=== PATIENT | male | born 1970 | race Caucasian/White ===

== ENCOUNTER 2018-04-03 21:34 | Emergency (ER) | payer SELFPAY ==
[2018-04-03] MEDS ORDERED: Sodium Chloride 0.9% 2.5 ML Syringe FLUSH PRN (21:40)
[2018-04-03] MEDS ORDERED: Sodium Chloride 0.9% 10 ML Syringe FLUSH PRN (21:40)
[2018-04-03] MEDS ORDERED: Ondansetron 4 MG/2 ML SDV IVPUSH ONE (21:41)
[2018-04-03] MEDS ORDERED: Sodium Chloride 0.9% 1,000 ML IV ONE (21:41)
--- NOTE | 2018-04-03 21:41 | EDM.PDOC ---
ED HPI GENERAL MEDICAL PROBLEM - General Chief Complaint: General Stated Complaint: PT HAS HIGH BLOOD PRESSURE Time Seen by Provider: 04/03/18 21:36 - History of Present Illness INITIAL COMMENTS - FREE TEXT/NARRATIVE: HISTORY AND PHYSICAL: History of present illness: Patient's a 48-year-old white male history of hypertension diabetes is medically noncompliant and has not been on medication for 4 months he presents with concern of dizziness he states also had a dental abscess for which he has yet to seek dental care. Additional fever chills vomiting numbness weakness or other complaints Review of systems: As per history of present illness and below otherwise all systems reviewed and negative. Past medical history: As per history of present illness and as reviewed below otherwise noncontributory. Surgical history: As per history of present illness and as reviewed below otherwise noncontributory. Social history: No reported history of drug or alcohol abuse. Family history: As per history of present illness and as reviewed below otherwise noncontributory. Physical exam: HEENT: Atraumatic, normocephalic, pupils reactive, negative for conjunctival pallor or scleral icterus, mucous membranes dry throat clear, neck supple, nontender, trachea midline. Generally poor dentition is got some left-sided swelling with gingival edema noted Lungs: Clear to auscultation, breath sounds equal bilaterally, chest nontender. Heart: S1S2, regular, negative for clicks, rubs, or JVD. Abdomen: Soft, nondistended, nontender. Negative for masses or hepatosplenomegaly. Negative for costovertebral tenderness. Pelvis: Stable nontender. Genitourinary: Deferred. Rectal: Deferred. Extremities: Atraumatic, negative for cords or calf pain. Neurovascular unremarkable. Neuro: Awake, alert, oriented. Cranial nerves II through XII unremarkable. Cerebellum unremarkable. Motor and sensory unremarkable throughout. Exam nonfocal. Diagnostics: CBC CMP PT/INR troponin ABG chest x-ray EKG Therapeutics: Daily 1 L bolus Zofran 4 mg IV Impression: #1 dizziness #2 history diabetes #3 history of hypertension #4 medical noncompliance Definitive disposition and diagnosis as appropriate pending reevaluation and review of above. - Related Data Allergies Allergy/AdvReac Type Severity Reaction Status Date / Time SEASONAL Allergy Sneezing Uncoded 04/16/17 08:59 ED ROS GENERAL - Review of Systems Review Of Systems: ROS reveals no pertinent complaints other than HPI. ED EXAM, GENERAL - Physical Exam Exam: See Below (See dictation) Course - Vital Signs Last Recorded V/S: Last Vital Signs Temp 37.8 C 04/03/18 21:34 Pulse 112 H 04/03/18 21:34 Resp 18 04/03/18 21:34 BP 133/87 04/03/18 21:34 Pulse Ox 94 L 04/03/18 21:34 - Orders/Labs/Meds Orders: Active Orders 24 hr Category Date Time Status EKG Documentation Completion [RC] STAT Care 04/03/18 21:40 Active Chest 1V Frontal [CR] Stat Exams 04/03/18 21:40 Ordered Sodium Chloride 0.9% [Normal Saline] 1,000 ml Med 04/03/18 21:41 Active IV STAT Sodium Chloride 0.9% [Saline Flush] Med 04/03/18 21:40 Active 10 ml FLUSH ASDIRECTED PRN Sodium Chloride 0.9% [Saline Flush] Med 04/03/18 21:40 Active 2.5 ml FLUSH ASDIRECTED PRN Saline Lock Insert [OM.PC] Stat Oth 04/03/18 21:40 Ordered Medication Orders Sodium Chloride (Normal Saline) 1,000 mls @ 999 mls/hr IV STAT ONE Stop: 04/03/18 22:41 Last Admin: 04/03/18 21:43 Dose: 999 mls/hr Sodium Chloride (Saline Flush) 10 ml FLUSH ASDIRECTED PRN PRN Reason: Keep Vein Open Sodium Chloride (Saline Flush) 2.5 ml FLUSH ASDIRECTED PRN PRN Reason: Keep Vein Open Labs: Laboratory Tests 04/03/18 04/03/18 04/03/18 Range/Units 21:40 21:40 21:40 WBC 11.72 H (4.0-11.0) K/uL RBC 5.12 (4.50-5.90) M/uL Hgb 15.7 (13.0-17.0) g/dL Hct 44.5 (38.0-50.0) % MCV 86.9 (80.0-98.0) fL MCH 30.7 (27.0-32.0) pg MCHC 35.3 (31.0-37.0) g/dL RDW Std Deviation 40.6 (28.0-62.0) fl RDW Coeff of Bishop 13 (11.0-15.0) % Plt Count 287 (150-400) K/uL MPV 10.50 (7.40-12.00) fL Neut % (Auto) 92.5 H (48.0-80.0) % Lymph % (Auto) 3.9 L (16.0-40.0) % [place] % (Auto) 3.2 (0.0-15.0) % Eos % (Auto) 0.2 (0.0-7.0) % Baso % (Auto) 0.2 (0.0-1.5) % Neut # (Auto) 10.8 H (1.4-5.7) K/uL Lymph # (Auto) 0.5 L (0.6-2.4) K/uL [place] # (Auto) 0.4 (0.0-0.8) K/uL Eos # (Auto) 0.0 (0.0-0.7) K/uL Baso # (Auto) 0.0 (0.0-0.1) K/uL Nucleated RBC % 0.0 /100WBC Nucleated RBCs # 0 K/uL INR 1.01 ABG pH (7.35-7.45) ABG pCO2 (35-45) mmHG ABG pO2 (75-100) mmHG ABG HCO3 (22-26) mEq/L ABG Total CO2 ABG Base Excess (-2.0-2.0) Sodium 135 L (136-148) mmol/L Potassium 3.7 (3.5-5.1) mmol/L Chloride 101 (98-107) mmol/L Carbon Dioxide 20.6 L (21.0-32.0) mmol/L BUN 23 H (7.0-18.0) mg/dL Creatinine 1.3 (0.8-1.3) mg/dL Est Cr Clr Drug Dosing 83.06 mL/min Estimated GFR (MDRD) 58.9 ml/min Glucose 270 H (74-106) mg/dL Calcium 9.6 (8.5-10.1) mg/dL Total Bilirubin 0.4 (0.2-1.0) mg/dL AST 14 L (15-37) IU/L ALT 23 (14-63) IU/L Alkaline Phosphatase 81 (46-116) U/L Troponin I < 0.050 (0.000-0.056) ng/mL Total Protein 7.7 (6.4-8.2) g/dL Albumin 3.6 (3.4-5.0) g/dL Globulin 4.1 H (2.6-4.0) g/dL Albumin/Globulin Ratio 0.9 (0.9-1.6) 04/03/18 Range/Units 21:50 WBC (4.0-11.0) K/uL RBC (4.50-5.90) M/uL Hgb (13.0-17.0) g/dL Hct (38.0-50.0) % MCV (80.0-98.0) fL MCH (27.0-32.0) pg MCHC (31.0-37.0) g/dL RDW Std Deviation (28.0-62.0) fl RDW Coeff of Bishop (11.0-15.0) % Plt Count (150-400) K/uL MPV (7.40-12.00) fL Neut % (Auto) (48.0-80.0) % Lymph % (Auto) (16.0-40.0) % [place] % (Auto) (0.0-15.0) % Eos % (Auto) (0.0-7.0) % Baso % (Auto) (0.0-1.5) % Neut # (Auto) (1.4-5.7) K/uL Lymph # (Auto) (0.6-2.4) K/uL [place] # (Auto) (0.0-0.8) K/uL Eos # (Auto) (0.0-0.7) K/uL Baso # (Auto) (0.0-0.1) K/uL Nucleated RBC % /100WBC Nucleated RBCs # K/uL INR ABG pH 7.406 (7.35-7.45) ABG pCO2 32 L (35-45) mmHG ABG pO2 61 L (75-100) mmHG ABG HCO3 20 L (22-26) mEq/L ABG Total CO2 17.7 ABG Base Excess -3.5 L (-2.0-2.0) Sodium (136-148) mmol/L Potassium (3.5-5.1) mmol/L Chloride (98-107) mmol/L Carbon Dioxide (21.0-32.0) mmol/L BUN (7.0-18.0) mg/dL Creatinine (0.8-1.3) mg/dL Est Cr Clr Drug Dosing mL/min Estimated GFR (MDRD) ml/min Glucose (74-106) mg/dL Calcium (8.5-10.1) mg/dL Total Bilirubin (0.2-1.0) mg/dL AST (15-37) IU/L ALT (14-63) IU/L Alkaline Phosphatase (46-116) U/L Troponin I (0.000-0.056) ng/mL Total Protein (6.4-8.2) g/dL Albumin (3.4-5.0) g/dL Globulin (2.6-4.0) g/dL Albumin/Globulin Ratio (0.9-1.6) Meds: Medications Generic Name Dose Route Start Last Admin Trade Name Freq PRN Reason Stop Dose Admin Sodium Chloride 1,000 mls @ 999 mls/hr 04/03/18 21:41 04/03/18 21:43 Normal Saline IV 04/03/18 22:41 999 mls/hr STAT ONE Administration Sodium Chloride 10 ml 04/03/18 21:40 Saline Flush FLUSH ASDIRECTED PRN Keep Vein Open Sodium Chloride 2.5 ml 04/03/18 21:40 Saline Flush FLUSH ASDIRECTED PRN Keep Vein Open Discontinued Medications Generic Name Dose Route Start Last Admin Trade Name Freq PRN Reason Stop Dose Admin Ondansetron HCl 4 mg 04/03/18 21:41 04/03/18 21:46 Zofran IVPUSH 04/03/18 21:42 4 mg ONETIME ONE Administration Departure - Departure Time of Disposition: 22:24 Disposition: Home, Self-Care 01 Condition: Good Clinical Impression: Dizziness, Dentalgia, History of diabetes mellitus, History of hypertension, Medical non-compliance - Discharge Information Forms: ED Department Discharge Additional Instructions: The following information is given to patients seen in the emergency department who are being discharged to home. This information is to outline your options for follow-up care. We provide all patients seen in our emergency department with a follow-up referral. The need for follow-up, as well as the timing and circumstances, are variable depending upon the specifics of your emergency department visit. If you don't have a primary care physician on staff, we will provide you with a referral. We always advise you to contact your personal physician following an emergency department visit to inform them of the circumstance of the visit and for follow-up with them and/or the need for any referrals to a consulting specialist. The emergency department will also refer you to a specialist when appropriate. This referral assures that you have the opportunity for followup care with a specialist. All of these measure are taken in an effort to provide you with optimal care, which includes your followup. Under all circumstances we always encourage you to contact your private physician who remains a resource for coordinating your care. When calling for followup care, please make the office aware that this follow-up is from your recent emergency room visit. If for any reason you are refused follow-up, please contact the [facility] emergency department at and asked to speak to the emergency department charge nurse. [facility] [address] [place] [id number] Penicillin as directed Motrin/Tylenol as directed follow primary care above for coordination of medications and care regarding diabetes and hypertension return as needed as discussed - My Orders Last 24 Hours: My Active Orders 04/03/18 21:40 EKG Documentation Completion [RC] STAT Chest 1V Frontal [CR] Stat Sodium Chloride 0.9% [Saline Flush] 10 ml FLUSH ASDIRECTED PRN Sodium Chloride 0.9% [Saline Flush] 2.5 ml FLUSH ASDIRECTED PRN Saline Lock Insert [OM.PC] Stat 04/03/18 21:41 Sodium Chloride 0.9% [Normal Saline] 1,000 ml IV STAT - Assessment/Plan Last 24 Hours: My Active Orders 04/03/18 21:40 EKG Documentation Completion [RC] STAT Chest 1V Frontal [CR] Stat Sodium Chloride 0.9% [Saline Flush] 10 ml FLUSH ASDIRECTED PRN Sodium Chloride 0.9% [Saline Flush] 2.5 ml FLUSH ASDIRECTED PRN Saline Lock Insert [OM.PC] Stat 04/03/18 21:41 Sodium Chloride 0.9% [Normal Saline] 1,000 ml IV STAT
[2018-04-03 22:15] LABS: CHLORIDE,CL 101 mmol/L (98-107); SODIUM,NA 135 mmol/L (136-148)
--- NOTE | 2018-04-03 22:53 | CR ---
Indication: Dizziness Technique: Chest 1 view Comparison: None Findings/Impression: Cardiomediastinal silhouette within normal limits. Elevation of right hemidiaphragm. Linear atelectasis at the right lung base. Remainder of the lungs and pleural spaces are clear. No acute osseous abnormality. Dictated by Becky Streeter MD @ Apr 03 2018 10:50PM Signed by Dr. Becky Streeter @ Apr 03 2018 10:51PM
== END 2018-04-03 22:50 | disposition home or self-care (01) ==
LOC: MW.ED 21:34
DX: R42 Dizziness and giddiness (principal); K08.89 Other specified disorders of teeth and supporting structures; Z91.19 Patient's noncompliance with other medical treatment and regimen; I10 Essential (primary) hypertension; E11.9 Type 2 diabetes mellitus without complications; Z91.09 Other allergy status, other than to drugs and biological substances
CPT/HCPCS: 36415; 36600; 71045; 80053; 82803; 84484; 85025; 85610; 87804; 93005; 96361; 96374; 99284; J2405; J7040

== ENCOUNTER 2018-05-25 10:49 | Observation (INO) | payer MEDICAID ==
--- NOTE | 2018-05-25 11:00 | EDM.PDOC ---
ED HPI GENERAL MEDICAL PROBLEM - General Chief Complaint: Lower Extremity Injury/Pain Stated Complaint: FOOT PAIN Time Seen by Provider: 05/25/18 10:52 Source of Information: Reports: Patient History Limitations: Reports: No Limitations - History of Present Illness INITIAL COMMENTS - FREE TEXT/NARRATIVE: HISTORY AND PHYSICAL: History of present illness: Patient is a 48-year-old male who presents to the emergency room from Dr Saldana classification clerk's office for further evaluation of a diabetic foot ulcer. Patient does have a history of hypertension and type 2 diabetes; does take insulin to manage his blood sugars. He states that over the past 2 days his blood sugars have been running 500-300. States he noticed this painful foot ulcer below the great toe on his right foot yesterday. He has had some drainage from the site. Patient has exquisite tenderness with palpation and weightbearing. Patient denies any fever, chills, headache, change in vision, syncope or near syncope. Denies any chest pain, back pain, shortness of breath or cough. Denies any abdominal pain, nausea, vomiting, diarrhea, constipation or dysuria. Has not noted any blood in urine or stool. Patient has been eating and drinking appropriately. Review of systems: As per history of present illness and below otherwise all systems reviewed and negative. Past medical history: As per history of present illness and as reviewed below otherwise noncontributory. Surgical history: As per history of present illness and as reviewed below otherwise noncontributory. Social history: See social history for further information Family history: As per history of present illness and as reviewed below otherwise noncontributory. Physical exam: General: Well-developed and well-nourished 48-year-old male. Alert and oriented. Nontoxic appearing and in no acute distress. HEENT: Atraumatic, normocephalic, pupils equal and reactive bilaterally, negative for conjunctival pallor or scleral icterus, mucous membranes moist, TMs normal bilaterally, throat clear, neck supple, nontender, trachea midline. No drooling or trismus noted. No meningeal signs. No hot potato voice noted. Lungs: Clear to auscultation, breath sounds equal bilaterally, chest nontender. Heart: S1S2, regular rate and rhythm without overt murmur Abdomen: Soft, nondistended, nontender. Negative for masses or hepatosplenomegaly. Negative for costovertebral tenderness. Pelvis: Stable nontender. Genitourinary: Deferred. Rectal: Deferred. Skin: Patient does have erythema to the dorsal aspect at the base of the toes. Skin is very dry and calloused along the plantar surface of the foot. There is a quarter size ulcer with a purulent center at the base of the fourth and fifth digit. Intact, warm, dry. No lesions or rashes noted. Extremities: Atraumatic, moves all extremities per self with difficulty or deficits, negative for cords or calf pain. Neurovascular unremarkable. Neuro: Awake, alert, oriented. Cranial nerves II through XII unremarkable. Cerebellum unremarkable. Motor and sensory unremarkable throughout. Exam nonfocal. Notes: Dr Bang was directly involved in this case. Dr Das was consulted on this case and agreeable to keeping this patient for observation. He would like the patient started on IV vancomycin. Patient is aware and agreeable to plan of care. Diagnostics: CBC, CMP, Blood culture x 2, Foot Xray Therapeutics: IV vancomycin Impression: Cellulitis, right foot Plan: Observation admission to med/surg Definitive disposition and diagnosis as appropriate pending reevaluation and review of above. Right Feet Pain Score (Numeric/FACES): 5 - Related Data Allergies Allergy/AdvReac Type Severity Reaction Status Date / Time SEASONAL Allergy Sneezing Uncoded 05/25/18 10:56 Home Meds: Home Meds Insulin Aspart [NovoLOG] 0 unit WITHMEALSANDBED 05/25/18 [History] Insulin Degludec [Tresiba] 100 unit SQ ASDIRECTED 05/25/18 [History] Past Medical History Cardiovascular History: Reports: Hypertension Endocrine/Metabolic History: Reports: Diabetes, Type II Social & Family History - Family History Family Medical History: Noncontributory Review of Systems - Review of Systems Review Of Systems: ROS reveals no pertinent complaints other than HPI. ED EXAM, GENERAL - Physical Exam Exam: See Below (See dictation) Course - Vital Signs Last Recorded V/S: Last Vital Signs Temp 97.9 F 05/25/18 10:57 Pulse 90 05/25/18 10:57 Resp 16 05/25/18 10:57 BP 163/100 H 05/25/18 10:57 Pulse Ox 94 L 05/25/18 10:57 - Orders/Labs/Meds Orders: Active Orders 24 hr Category Date Time Status Admission Status [Patient Status] [ADT] Stat ADT 05/25/18 12:02 Ordered Foot Comp Min 3V Rt [CR] Stat Exams 05/25/18 11:01 Taken COMPREHENSIVE METABOLIC PN,CMP [CHEM] Stat Lab 05/25/18 11:24 Received CULTURE BLOOD [BC] Stat Lab 05/25/18 11:24 Received CULTURE BLOOD [BC] Stat Lab 05/25/18 11:35 Received Sodium Chloride 0.9% [Saline Flush] Med 05/25/18 11:01 Active 10 ml FLUSH ASDIRECTED PRN Sodium Chloride 0.9% [Saline Flush] Med 05/25/18 11:01 Active 2.5 ml FLUSH ASDIRECTED PRN Vancomycin [Vancocin] 1 gm Med 05/25/18 12:01 Ordered Sodium Chloride 0.9% [Normal Saline] 250 ml IV ONETIME Blood Culture x2 Reflex Set [OM.PC] Stat Oth 05/25/18 11:01 Ordered Saline Lock Insert [OM.PC] Stat Oth 05/25/18 11:01 Ordered Medication Orders Vancomycin HCl 1 gm/ Sodium (Chloride) 250 mls @ 250 mls/hr IV ONETIME ONE Stop: 05/25/18 13:00 Sodium Chloride (Saline Flush) 10 ml FLUSH ASDIRECTED PRN PRN Reason: Keep Vein Open Last Admin: 05/25/18 11:29 Dose: 10 ml Sodium Chloride (Saline Flush) 2.5 ml FLUSH ASDIRECTED PRN PRN Reason: Keep Vein Open Last Admin: 05/25/18 11:29 Dose: 2.5 ml Labs: Laboratory Tests 05/25/18 05/25/18 Range/Units 11:07 11:24 WBC 10.60 (4.0-11.0) K/uL RBC 5.10 (4.50-5.90) M/uL Hgb 15.4 (13.0-17.0) g/dL Hct 43.5 (38.0-50.0) % MCV 85.3 (80.0-98.0) fL MCH 30.2 (27.0-32.0) pg MCHC 35.4 (31.0-37.0) g/dL RDW Std Deviation 36.6 (28.0-62.0) fl RDW Coeff of Bishop 12 (11.0-15.0) % Plt Count 331 (150-400) K/uL MPV 10.20 (7.40-12.00) fL Neut % (Auto) 76.0 (48.0-80.0) % Lymph % (Auto) 17.1 (16.0-40.0) % [place] % (Auto) 5.3 (0.0-15.0) % Eos % (Auto) 1.4 (0.0-7.0) % Baso % (Auto) 0.2 (0.0-1.5) % Neut # (Auto) 8.1 H (1.4-5.7) K/uL Lymph # (Auto) 1.8 (0.6-2.4) K/uL [place] # (Auto) 0.6 (0.0-0.8) K/uL Eos # (Auto) 0.2 (0.0-0.7) K/uL Baso # (Auto) 0.0 (0.0-0.1) K/uL POC Glucose 135 H (60-110) mg/dL Meds: Medications Generic Name Dose Route Start Last Admin Trade Name Freq PRN Reason Stop Dose Admin Vancomycin HCl 1 gm/ Sodium 250 mls @ 250 mls/hr 05/25/18 12:01 Chloride IV 05/25/18 13:00 ONETIME ONE Sodium Chloride 10 ml 05/25/18 11:01 05/25/18 11:29 Saline Flush FLUSH 10 ml ASDIRECTED PRN Administration Keep Vein Open Sodium Chloride 2.5 ml 05/25/18 11:01 05/25/18 11:29 Saline Flush FLUSH 2.5 ml ASDIRECTED PRN Administration Keep Vein Open Departure - Departure Time of Disposition: 12:06 Disposition: Refer to Observation Clinical Impression: Cellulitis Qualifiers: Site of cellulitis: extremity Site of cellulitis of extremity: lower extremity Laterality: right Qualified Code(s): L03.115 - Cellulitis of right lower limb - Discharge Information Referrals: Gracy Adhikari [employer] [Primary Care Provider] - Forms: ED Department Discharge - My Orders Last 24 Hours: My Active Orders 05/25/18 11:01 Foot Comp Min 3V Rt [CR] Stat Sodium Chloride 0.9% [Saline Flush] 10 ml FLUSH ASDIRECTED PRN Sodium Chloride 0.9% [Saline Flush] 2.5 ml FLUSH ASDIRECTED PRN Blood Culture x2 Reflex Set [OM.PC] Stat Saline Lock Insert [OM.PC] Stat 05/25/18 11:24 COMPREHENSIVE METABOLIC PN,CMP [CHEM] Stat CULTURE BLOOD [BC] Stat 05/25/18 11:35 CULTURE BLOOD [BC] Stat 05/25/18 12:01 Vancomycin [Vancocin] 1 gm Sodium Chloride 0.9% [Normal Saline] 250 ml IV ONETIME 05/25/18 12:02 Admission Status [Patient Status] [ADT] Stat - Assessment/Plan Last 24 Hours: My Active Orders 05/25/18 11:01 Foot Comp Min 3V Rt [CR] Stat Sodium Chloride 0.9% [Saline Flush] 10 ml FLUSH ASDIRECTED PRN Sodium Chloride 0.9% [Saline Flush] 2.5 ml FLUSH ASDIRECTED PRN Blood Culture x2 Reflex Set [OM.PC] Stat Saline Lock Insert [OM.PC] Stat 05/25/18 11:24 COMPREHENSIVE METABOLIC PN,CMP [CHEM] Stat CULTURE BLOOD [BC] Stat 05/25/18 11:35 CULTURE BLOOD [BC] Stat 05/25/18 12:01 Vancomycin [Vancocin] 1 gm Sodium Chloride 0.9% [Normal Saline] 250 ml IV ONETIME 05/25/18 12:02 Admission Status [Patient Status] [ADT] Stat
[2018-05-25] MEDS ORDERED: Sodium Chloride 0.9% 2.5 ML Syringe FLUSH PRN (11:01)
[2018-05-25] MEDS ORDERED: Sodium Chloride 0.9% 10 ML Syringe FLUSH PRN (11:01)
[2018-05-25 12:15] LABS: CHLORIDE,CL 102 mmol/L (98-107); SODIUM,NA 138 mmol/L (136-148)
--- NOTE | 2018-05-25 13:09 | PCM.HP ---
<Sinai Vital M - Last Filed: 05/25/18 16:41> H&P History of Present Illness - General Date of Service: 05/25/18 Admit Problem/Dx: Admission Diagnosis/Problem Admission Diagnosis/Problem Cellulitis Source of Information: Patient History Limitations: Reports: No Limitations - History of Present Illness Initial Comments - Free Text/Narative: This 48 year old male with pmh of DM type 2, HTN, obesity presented to the ED from podiatry clinic with concerns of cellulitis and diabetic ulcer to R foot. He reports he has callouses to his feet that have been there for a long time. About 1 week ago this callous to bottom of foot started becoming sore and started draining. He denies fevers, chills, chest pain or shortness of breath. He reports increased pain to R foot with some redness and warmth. No calf tenderness. No tingling or numbness. He reports he has not been taking his medications, such as insulin or HTN meds as of recently. He did meet with DM educator a couple days ago to get started on insulin again. He denies history of ulcers. No [place] or known CAD. In the ED no leukocytosis noted. Labwork otherwise WNL. BC obtained. Xray of foot pending. He was treated with Vancomycin and admitted secondary to DM foot ulcer with surround cellulitis PCP, newly established with Gracy Howard. Right Feet Pain Score (Numeric/FACES): 5 - Related Data Allergies/Adverse Reactions: Allergies Allergy/AdvReac Type Severity Reaction Status Date / Time SEASONAL Allergy Sneezing Uncoded 05/25/18 10:56 Home Medications: Home Meds FLUoxetine HCl [Fluoxetine HCl] 40 mg PO DAILY 05/25/18 [History] Insulin Aspart [NovoLOG] 5 unit SUBCUT WITHBREAKFAST 05/25/18 [History] Insulin Aspart [NovoLOG] 8 unit SUBCUT WITHLUNCH 05/25/18 [History] Insulin Aspart [NovoLOG] 12 unit SUBCUT WITHDINNER 05/25/18 [History] Insulin Degludec [Tresiba] 20 unit SQ BEDTIME 05/25/18 [History] Lisinopril 20 mg PO DAILY 05/25/18 [History] Simvastatin 20 mg PO BEDTIME 05/25/18 [History] traZODone HCl [Trazodone HCl] 50 mg PO BEDTIME PRN 05/25/18 [History] Past Medical History HEENT History: Reports: None Cardiovascular History: Reports: Hypertension. Denies: Afib, Blood Clots/VTE/ DVT, CAD Respiratory History: Reports: None. Denies: Asthma, COPD Gastrointestinal History: Reports: None. Denies: GERD Genitourinary History: Reports: None. Denies: Chronic Renal Insuffiency Musculoskeletal History: Reports: None Neurological History: Reports: None Psychiatric History: Reports: None Endocrine/Metabolic History: Reports: Diabetes, Type II, Obesity/BMI 30+ Hematologic History: Reports: None Immunologic History: Reports: None Oncologic (Cancer) History: Reports: None Dermatologic History: Reports: None - Infectious Disease History Infectious Disease History: Reports: None - Past Surgical History Head Surgeries/Procedures: Reports: None Cardiovascular Surgical History: Reports: None GI Surgical History: Reports: None Social & Family History - Family History Family Medical History: Noncontributory - Tobacco Use Smoking Status *Q: Never Smoker - Caffeine Use Caffeine Use: Reports: Coffee - Alcohol Use Alcohol Use History: No - Recreational Drug Use Recreational Drug Use: No - Living Situation & Occupation Living situation: Reports: Single 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 Denies: Fever, Chills, Malaise, Weakness HEENT: Reports: No Symptoms. Denies: Headaches, Sinus Congestion, Sore Throat, Vertigo Pulmonary: Reports: No Symptoms. Denies: Shortness of Breath Cardiovascular: Reports: No Symptoms. Denies: Chest Pain Gastrointestinal: Reports: No Symptoms. Denies: Abdominal Pain, Black Stool, Bloody Stool, Nausea, Vomiting Genitourinary: Reports: No Symptoms. Denies: Dysuria, Frequency, Burning Musculoskeletal: Reports: Foot Pain (Lateral edge of bottom of foot where ulcer is located. ) Skin: Reports: Erythema, Wound (R foot) Neurological: Reports: No Symptoms Hematologic/Lymphatic: Reports: No Symptoms Immunologic: Reports: No Symptoms Exam - Exam Exam: See Below - Vital Signs Vital Signs: Last Vital Signs Temp 97.9 F 05/25/18 10:57 Pulse 82 05/25/18 12:55 Resp 18 05/25/18 12:55 BP 145/93 H 05/25/18 12:55 Pulse Ox 98 05/25/18 12:55 Weight: 130.635 kg - Exam General: Alert, Oriented, Cooperative HEENT: Conjunctiva Clear, Mucosa Moist & Loring, Posterior Pharynx Clear Lungs: Clear to Auscultation, Normal Respiratory Effort Cardiovascular: Regular Rate, Regular Rhythm, Normal S1, Normal S2 GI/Abdominal Exam: Normal Bowel Sounds, Soft, Non-Tender, Other (obese abdomen) Back Exam: Normal Inspection, Full Range of Motion Extremities: Normal Inspection, Normal Range of Motion, Non-Tender, No Pedal Edema Skin: Wound (dorsal R foot, lateral edge just below 4th metatarsal, draining purulent drainage, callous surrounding this unable to detect fluctuance due to hardened callous around this. Extreme tenderness with any palpation. Warmth and redness noted to foot), Other (callouses to bilateral dorsum of feet.) Neuro Extensive - Mental Status: Alert, Oriented x3 Neuro Extensive - Motor, Sensory, Reflexes: CN II-XII Intact Psychiatric: Alert, Normal Affect, Normal Mood - Patient Data Lab Results Last 24 hrs: Laboratory Results - last 24 hr 05/25/18 05/25/18 05/25/18 Range/Units 11:07 11:24 11:24 WBC 10.60 (4.0-11.0) K/uL RBC 5.10 (4.50-5.90) M/uL Hgb 15.4 (13.0-17.0) g/dL Hct 43.5 (38.0-50.0) % MCV 85.3 (80.0-98.0) fL MCH 30.2 (27.0-32.0) pg MCHC 35.4 (31.0-37.0) g/dL RDW Std Deviation 36.6 (28.0-62.0) fl RDW Coeff of Bishop 12 (11.0-15.0) % Plt Count 331 (150-400) K/uL MPV 10.20 (7.40-12.00) fL Neut % (Auto) 76.0 (48.0-80.0) % Lymph % (Auto) 17.1 (16.0-40.0) % [place] % (Auto) 5.3 (0.0-15.0) % Eos % (Auto) 1.4 (0.0-7.0) % Baso % (Auto) 0.2 (0.0-1.5) % Neut # (Auto) 8.1 H (1.4-5.7) K/uL Lymph # (Auto) 1.8 (0.6-2.4) K/uL [place] # (Auto) 0.6 (0.0-0.8) K/uL Eos # (Auto) 0.2 (0.0-0.7) K/uL Baso # (Auto) 0.0 (0.0-0.1) K/uL Sodium 138 (136-148) mmol/L Potassium 3.9 (3.5-5.1) mmol/L Chloride 102 (98-107) mmol/L Carbon Dioxide 27.4 (21.0-32.0) mmol/L BUN 21 H (7.0-18.0) mg/dL Creatinine 1.2 (0.8-1.3) mg/dL Est Cr Clr Drug Dosing 89.98 mL/min Estimated GFR (MDRD) > 60.0 ml/min Glucose 138 H (74-106) mg/dL POC Glucose 135 H (60-110) mg/dL Calcium 9.5 (8.5-10.1) mg/dL Total Bilirubin 0.3 (0.2-1.0) mg/dL AST 13 L (15-37) IU/L ALT 28 (14-63) IU/L Alkaline Phosphatase 89 (46-116) U/L Total Protein 7.9 (6.4-8.2) g/dL Albumin 3.1 L (3.4-5.0) g/dL Globulin 4.8 H (2.6-4.0) g/dL Albumin/Globulin Ratio 0.7 L (0.9-1.6) Result Diagrams: 05/25/18 11:24 05/25/18 11:24 - Problem List (1) Cellulitis SNOMED Code(s): 995948576 ICD Code: L03.90 - CELLULITIS, UNSPECIFIED Status: Acute Current Visit: Yes Qualifiers: Site of cellulitis: extremity Site of cellulitis of extremity: lower extremity Laterality: right Qualified Code(s): L03.115 - Cellulitis of right lower limb (2) DM foot ulcer SNOMED Code(s): 302094632 ICD Code: E11.621 - TYPE 2 DIABETES MELLITUS WITH FOOT ULCER; L97.509 - NON- PRESSURE CHRONIC ULCER OTH PRT UNSP FOOT W UNSP SEVERITY Status: Acute Current Visit: Yes Qualifiers: Diabetic foot ulcer location: midfoot Diabetes mellitus type: type 1 Laterality: right (3) DM type 2 (diabetes mellitus, type 2) SNOMED Code(s): 24933696 ICD Code: E11.9 - TYPE 2 DIABETES MELLITUS WITHOUT COMPLICATIONS Status: Chronic Current Visit: Yes Qualifiers: Diabetes mellitus detention insulin use: with detention use Diabetes mellitus complication status: with skin complications Diabetes mellitus complication detail: with foot ulcer Qualified Code(s): E11.621 - Type 2 diabetes mellitus with foot ulcer; L97.509 - Non-pressure chronic ulcer of other part of unspecified foot with unspecified severity; Z79.4 - detention ( current) use of insulin (4) HTN (hypertension) SNOMED Code(s): 70656088 ICD Code: I10 - ESSENTIAL (PRIMARY) HYPERTENSION Status: Chronic Current Visit: Yes Qualifiers: Hypertension type: essential hypertension Qualified Code(s): I10 - Essential (primary) hypertension (5) Medical non-compliance SNOMED Code(s): 284911068 ICD Code: Z91.19 - PATIENT'S NONCOMPLIANCE W OTH MEDICAL TREATMENT AND REGIMEN Status: Acute Current Visit: No Problem List Initiated/Reviewed/Updated: Yes Orders Last 24hrs: Active Orders 24 hr Category Date Time Status Admission Status [Patient Status] [ADT] Stat ADT 05/25/18 12:02 Active Foot Comp Min 3V Rt [CR] Stat Exams 05/25/18 11:01 Taken CULTURE BLOOD [BC] Stat Lab 05/25/18 11:24 Received CULTURE BLOOD [BC] Stat Lab 05/25/18 11:35 Received Sodium Chloride 0.9% [Saline Flush] Med 05/25/18 11:01 Active 10 ml FLUSH ASDIRECTED PRN Sodium Chloride 0.9% [Saline Flush] Med 05/25/18 11:01 Active 2.5 ml FLUSH ASDIRECTED PRN Blood Culture x2 Reflex Set [OM.PC] Stat Oth 05/25/18 11:01 Ordered Saline Lock Insert [OM.PC] Stat Oth 05/25/18 11:01 Ordered Medication Orders Sodium Chloride (Saline Flush) 10 ml FLUSH ASDIRECTED PRN PRN Reason: Keep Vein Open Last Admin: 05/25/18 11:29 Dose: 10 ml Sodium Chloride (Saline Flush) 2.5 ml FLUSH ASDIRECTED PRN PRN Reason: Keep Vein Open Last Admin: 05/25/18 11:29 Dose: 2.5 ml Assessment/Plan Comment:: This 48 year old male admitted with DM foot ulcer with cellulitis 1. DM foot ulcer, R foot with cellulitis: Continue Vancomycin. Will order MRI to rule out abscess and osteomyelitis. I did explain to him no podiatry is available for inpatient management, if he needs further management such as debridement or surgical intervention he will need to be transferred. Wound culture of drainage. BC pending. 2. DM Type 2: Non complaint with medications. Has not been on insulin for awhile , A1c 10.4. Will start Lantus 20 units with bedtime. Novolog SSI with 5 units at breakfast, 8 at lunch and 12 units at supper. Discussed this with DM educator. 3. HTN: Has not been taking lisinopril. Will get restarted because BP is elevated on arrival. VTE prophylaxis: Lovenox Dispo: 1-2 days pending improvement. <Tevin Das - Last Filed: 05/25/18 16:59> H&P History of Present Illness - General Admit Problem/Dx: Admission Diagnosis/Problem Admission Diagnosis/Problem Cellulitis I have seen and examined the patient independently of Sinai Vital CNP. I have discussed the case with her. I have reviewed and agreed with the plan of treatment as outlined for this patient by her. Please see orders. MRI has been obtained secondary to concern for osteomyelitis. Exam - Vital Signs Vital Signs: Last Vital Signs Temp 37.2 C 05/25/18 14:00 Pulse 83 05/25/18 14:00 Resp 18 05/25/18 14:00 BP 150/95 H 05/25/18 14:00 Pulse Ox 100 05/25/18 14:00 - Patient Data Lab Results Last 24 hrs: Laboratory Results - last 24 hr 05/25/18 05/25/18 05/25/18 Range/Units 11:07 11:24 11:24 WBC 10.60 (4.0-11.0) K/uL RBC 5.10 (4.50-5.90) M/uL Hgb 15.4 (13.0-17.0) g/dL Hct 43.5 (38.0-50.0) % MCV 85.3 (80.0-98.0) fL MCH 30.2 (27.0-32.0) pg MCHC 35.4 (31.0-37.0) g/dL RDW Std Deviation 36.6 (28.0-62.0) fl RDW Coeff of Bishop 12 (11.0-15.0) % Plt Count 331 (150-400) K/uL MPV 10.20 (7.40-12.00) fL Neut % (Auto) 76.0 (48.0-80.0) % Lymph % (Auto) 17.1 (16.0-40.0) % [place] % (Auto) 5.3 (0.0-15.0) % Eos % (Auto) 1.4 (0.0-7.0) % Baso % (Auto) 0.2 (0.0-1.5) % Neut # (Auto) 8.1 H (1.4-5.7) K/uL Lymph # (Auto) 1.8 (0.6-2.4) K/uL [place] # (Auto) 0.6 (0.0-0.8) K/uL Eos # (Auto) 0.2 (0.0-0.7) K/uL Baso # (Auto) 0.0 (0.0-0.1) K/uL Sodium 138 (136-148) mmol/L Potassium 3.9 (3.5-5.1) mmol/L Chloride 102 (98-107) mmol/L Carbon Dioxide 27.4 (21.0-32.0) mmol/L BUN 21 H (7.0-18.0) mg/dL Creatinine 1.2 (0.8-1.3) mg/dL Est Cr Clr Drug Dosing 89.98 mL/min Estimated GFR (MDRD) > 60.0 ml/min Glucose 138 H (74-106) mg/dL POC Glucose 135 H (60-110) mg/dL Calcium 9.5 (8.5-10.1) mg/dL Total Bilirubin 0.3 (0.2-1.0) mg/dL AST 13 L (15-37) IU/L ALT 28 (14-63) IU/L Alkaline Phosphatase 89 (46-116) U/L Total Protein 7.9 (6.4-8.2) g/dL Albumin 3.1 L (3.4-5.0) g/dL Globulin 4.8 H (2.6-4.0) g/dL Albumin/Globulin Ratio 0.7 L (0.9-1.6) Result Diagrams: 05/25/18 11:24 05/25/18 11:24 Orders Last 24hrs: Active Orders 24 hr Category Date Time Status Admission Status [Patient Status] [ADT] Stat ADT 05/25/18 12:02 Active Blood Glucose Check, Bedside [RC] TIDMEALS Care 05/25/18 13:30 Active Intake and Output [RC] QSHIFT Care 05/25/18 13:31 Active May Shower [RC] ASDIRECTED Care 05/25/18 13:30 Active Oxygen Therapy [RC] PRN Care 05/25/18 13:31 Active Up ad Nadja [RC] ASDIRECTED Care 05/25/18 13:30 Active VTE/DVT Education [RC] PER UNIT ROUTINE Care 05/25/18 13:31 Active Vital Signs [RC] Q4H Care 05/25/18 13:31 Active Consult to Diabetic Nurse Specialist [CONS] Routine Cons 05/25/18 13:30 Active [employer] Diet [DIET] Diet 05/25/18 Lunch Active Foot w Cont Rt [MR] Routine Exams 05/25/18 13:10 Ordered BASIC METABOLIC PANEL,BMP [CHEM] AM Lab 05/26/18 05:11 Ordered BASIC METABOLIC PANEL,BMP [CHEM] AM Lab 05/27/18 05:11 Ordered BASIC METABOLIC PANEL,BMP [CHEM] AM Lab 05/28/18 05:11 Ordered CBC WITH AUTO DIFF [HEME] AM Lab 05/26/18 05:11 Ordered CBC WITH AUTO DIFF [HEME] AM Lab 05/27/18 05:11 Ordered CBC WITH AUTO DIFF [HEME] AM Lab 05/28/18 05:11 Ordered CULTURE BLOOD [BC] Stat Lab 05/25/18 11:24 Received CULTURE BLOOD [BC] Stat Lab 05/25/18 11:35 Received CULTURE WOUND [RM] Routine Lab 05/25/18 16:24 Ordered VANCOMYCIN TROUGH [CHEM] Timed Lab 05/26/18 13:30 Ordered Enoxaparin [Lovenox] Med 05/25/18 13:30 Active 40 mg SUBCUT Q24H FLUoxetine [PROzac] Med 05/26/18 09:00 Active 40 mg PO DAILY Insulin Aspart [NovoLOG] Med 05/25/18 17:00 Active 12 unit SUBCUT DAILY@1700 Insulin Aspart [NovoLOG] Med 05/26/18 07:00 Active 5 unit SUBCUT DAILY@0700 Insulin Aspart [NovoLOG] Med 05/26/18 11:30 Active 8 unit SUBCUT DAILY@1130 Insulin Aspart [NovoLOG] Med 05/25/18 17:00 Active See Protocol SUBCUT TIDAC Insulin Glarg,Human.Rec.Analog [LantUS Solostar] Med 05/25/18 21:00 Active 20 units SUBCUT BEDTIME Lisinopril [Prinivil] Med 05/26/18 09:00 Active 20 mg PO DAILY Morphine Med 05/25/18 13:30 Active 2 mg IVPUSH Q2H PRN Ondansetron [Zofran] Med 05/25/18 13:30 Active 4 mg IVPUSH Q4H PRN Pharmacy to Dose - Vancomycin Med 05/25/18 13:45 Active 1 dose .XX ASDIRECTED Simvastatin [Zocor] Med 05/25/18 21:00 Active 20 mg PO BEDTIME Sodium Chloride 0.9% [Saline Flush] Med 05/25/18 11:01 Active 10 ml FLUSH ASDIRECTED PRN Sodium Chloride 0.9% [Saline Flush] Med 05/25/18 11:01 Active 2.5 ml FLUSH ASDIRECTED PRN Vancomycin 1 gm Med 05/25/18 14:30 Active Vancomycin 500 mg Sodium Chloride 0.9% [Normal Saline] 500 ml IV Q8H oxyCODONE Med 05/25/18 13:30 Active 5 - 10 mg PO Q4H PRN traZODone Med 05/25/18 16:00 Active 50 mg PO BEDTIME PRN Blood Culture x2 Reflex Set [OM.PC] Stat Oth 05/25/18 11:01 Ordered Obtain Home Medication List [OM.PC] Routine Oth 05/25/18 13:40 Ordered Saline Lock Insert [OM.PC] Stat Oth 05/25/18 11:01 Ordered Resuscitation Status Routine Resus Stat 05/25/18 13:30 Ordered Medication Orders Enoxaparin Sodium (Lovenox) 40 mg SUBCUT Q24H [facility] Last Admin: 05/25/18 15:09 Dose: 40 mg Fluoxetine HCl (Prozac) 40 mg PO DAILY [facility] Vancomycin HCl 1 gm/Vancomycin HCl 500 mg/ Sodium Chloride 500 mls @ 250 mls/ hr IV Q8H [facility] Last Admin: 05/25/18 15:04 Dose: 250 mls/hr Insulin Aspart (Novolog) 0 unit SUBCUT TIDAC [facility]; Protocol Insulin Aspart (Novolog) 5 unit SUBCUT DAILY@0700 [facility] Insulin Aspart (Novolog) 8 unit SUBCUT DAILY@1130 [facility] Insulin Aspart (Novolog) 12 unit SUBCUT DAILY@1700 [facility] Insulin Glargine (Lantus Solostar) 20 units SUBCUT BEDTIME [facility] Lisinopril (Prinivil) 20 mg PO DAILY [facility] Morphine Sulfate (Morphine) 2 mg IVPUSH Q2H PRN PRN Reason: Pain (severe 7-10) Stop: 05/26/18 13:34 Ondansetron HCl (Zofran) 4 mg IVPUSH Q4H PRN PRN Reason: Nausea Oxycodone HCl (Oxycodone) 5 - 10 mg PO Q4H PRN PRN Reason: Pain (moderate 4-6) Simvastatin (Zocor) 20 mg PO BEDTIME [facility] Sodium Chloride (Saline Flush) 10 ml FLUSH ASDIRECTED PRN PRN Reason: Keep Vein Open Last Admin: 05/25/18 11:29 Dose: 10 ml Sodium Chloride (Saline Flush) 2.5 ml FLUSH ASDIRECTED PRN PRN Reason: Keep Vein Open Last Admin: 05/25/18 11:29 Dose: 2.5 ml Trazodone HCl (Trazodone) 50 mg PO BEDTIME PRN PRN Reason: Sleep Vancomycin HCl (Pharmacy To Dose - Vancomycin) 1 dose .XX ASDIRECTED [facility]
[2018-05-25] MEDS ORDERED: oxyCODONE 5 MG Tab PO PRN (13:30)
[2018-05-25] MEDS ORDERED: Ondansetron 4 MG/2 ML SDV IVPUSH PRN (13:30)
[2018-05-25] MEDS ORDERED: Morphine 2 MG/ML Syringe IVPUSH PRN (13:30)
[2018-05-25] MEDS: Vancomycin 1 GM, Vancomycin 500 MG in Sodium Chloride 0.9% 500 ML IV SCH ×2 (15:04→21:42)
[2018-05-25] MEDS: Enoxaparin 40 MG/0.4 ML Syringe SUBCUT SCH (15:09)
[2018-05-25] MEDS ORDERED: traZODone 50 MG Tab PO PRN (16:00)
--- NOTE | 2018-05-25 16:51 | CR ---
EXAMINATION: Right foot HISTORY: Diabetic foot ulcer COMPARISON: None TECHNIQUE: 3 views FINDINGS: There is no acute osseous abnormality, dislocation, or fracture. Hallux valgus is noted. Moderate soft tissue swelling surrounding the right foot. No definite bony erosion or foreign body. IMPRESSION: Soft tissue swelling without an acute osseous abnormality.
[2018-05-25] MEDS ORDERED: Insulin Aspart 100 Units/ML 3 ML Pen SUBCUT SCH (17:00)
[2018-05-25] MEDS: Insulin Aspart 100 Units/ML 3 ML Pen SUBCUT SCH (18:22)
[2018-05-25] MEDS ORDERED: Simvastatin 20 MG Tab PO SCH (21:00)
[2018-05-25] MEDS ORDERED: INSULIN DEGLUDEC 20 UNIT SQ SCH (21:00)
[2018-05-25] MEDS ORDERED: Insulin Glargine,Human Rec. Analog 100 Units/ML 3 ML Pen SUBCUT SCH (21:00)
[2018-05-26] MEDS: Vancomycin 1 GM, Vancomycin 500 MG in Sodium Chloride 0.9% 500 ML IV SCH (05:29)
[2018-05-26 06:23] LABS: CHLORIDE,CL 103 mmol/L (98-107); SODIUM,NA 136 mmol/L (136-148)
[2018-05-26] MEDS ORDERED: Insulin Aspart 100 Units/ML 3 ML Pen SUBCUT SCH ×2 (07:00→11:30)
[2018-05-26] MEDS: Insulin Aspart 100 Units/ML 3 ML Pen SUBCUT SCH ×2 (07:47→11:50)
[2018-05-26] MEDS ORDERED: FLUoxetine 20 MG Cap PO SCH (09:00)
[2018-05-26] MEDS ORDERED: Lisinopril 10 MG Tab PO SCH (09:00)
--- NOTE | 2018-05-26 09:15 | PCM.PN ---
<Sinai Vital M - Last Filed: 05/26/18 10:49> - General Info Date of Service: 05/26/18 Admission Dx/Problem (Free Text): Admission Diagnosis/Problem Admission Diagnosis/Problem Cellulitis Subjective Update: Doing well today, pain is much better controlled today. Redness to foot has improved. NO chest pain or SOB. Eager to be discharged home. Functional Status: Reports: Pain Controlled, Tolerating Diet, Ambulating, Urinating - Review of Systems General: Reports: No Symptoms. Denies: Fever, Weakness Pulmonary: Reports: No Symptoms. Denies: Shortness of Breath Cardiovascular: Reports: No Symptoms. Denies: Chest Pain Gastrointestinal: Reports: No Symptoms. Denies: Abdominal Pain Skin: Reports: Other (wound to R foot) Neurological: Reports: No Symptoms Psychiatric: Reports: No Symptoms - Patient Data Vitals - Most Recent: Last Vital Signs Temp 97.5 F 05/26/18 08:00 Pulse 69 05/26/18 08:00 Resp 18 05/26/18 08:00 BP 131/88 05/26/18 08:43 Pulse Ox 94 L 05/26/18 08:00 Weight - Most Recent: 130.635 kg I&O - Last 24 Hours: Intake & Output 05/25/18 05/26/18 05/26/18 22:59 06:59 14:59 Intake Total 980 1371 Output Total 0 Balance 980 1371 Lab Results Last 24 Hours: Laboratory Results - last 24 hr 05/25/18 05/25/18 05/25/18 Range/Units 11:07 11:24 11:24 WBC 10.60 (4.0-11.0) K/uL RBC 5.10 (4.50-5.90) M/uL Hgb 15.4 (13.0-17.0) g/dL Hct 43.5 (38.0-50.0) % MCV 85.3 (80.0-98.0) fL MCH 30.2 (27.0-32.0) pg MCHC 35.4 (31.0-37.0) g/dL RDW Std Deviation 36.6 (28.0-62.0) fl RDW Coeff of Bishop 12 (11.0-15.0) % Plt Count 331 (150-400) K/uL MPV 10.20 (7.40-12.00) fL Neut % (Auto) 76.0 (48.0-80.0) % Lymph % (Auto) 17.1 (16.0-40.0) % Lander % (Auto) 5.3 (0.0-15.0) % Eos % (Auto) 1.4 (0.0-7.0) % Baso % (Auto) 0.2 (0.0-1.5) % Neut # (Auto) 8.1 H (1.4-5.7) K/uL Lymph # (Auto) 1.8 (0.6-2.4) K/uL Lander # (Auto) 0.6 (0.0-0.8) K/uL Eos # (Auto) 0.2 (0.0-0.7) K/uL Baso # (Auto) 0.0 (0.0-0.1) K/uL Sodium 138 (136-148) mmol/L Potassium 3.9 (3.5-5.1) mmol/L Chloride 102 (98-107) mmol/L Carbon Dioxide 27.4 (21.0-32.0) mmol/L BUN 21 H (7.0-18.0) mg/dL Creatinine 1.2 (0.8-1.3) mg/dL Est Cr Clr Drug Dosing 89.98 mL/min Estimated GFR (MDRD) > 60.0 ml/min Glucose 138 H (74-106) mg/dL POC Glucose 135 H (60-110) mg/dL Calcium 9.5 (8.5-10.1) mg/dL Total Bilirubin 0.3 (0.2-1.0) mg/dL AST 13 L (15-37) IU/L ALT 28 (14-63) IU/L Alkaline Phosphatase 89 (46-116) U/L Total Protein 7.9 (6.4-8.2) g/dL Albumin 3.1 L (3.4-5.0) g/dL Globulin 4.8 H (2.6-4.0) g/dL Albumin/Globulin Ratio 0.7 L (0.9-1.6) 05/25/18 05/25/18 05/26/18 Range/Units 17:00 21:14 05:05 WBC 7.49 (4.0-11.0) K/uL RBC 4.67 (4.50-5.90) M/uL Hgb 14.1 (13.0-17.0) g/dL Hct 40.5 (38.0-50.0) % MCV 86.7 (80.0-98.0) fL MCH 30.2 (27.0-32.0) pg MCHC 34.8 (31.0-37.0) g/dL RDW Std Deviation 37.9 (28.0-62.0) fl RDW Coeff of Bishop 12 (11.0-15.0) % Plt Count 304 (150-400) K/uL MPV 10.40 (7.40-12.00) fL Neut % (Auto) 57.7 (48.0-80.0) % Lymph % (Auto) 32.0 (16.0-40.0) % Lander % (Auto) 7.6 (0.0-15.0) % Eos % (Auto) 2.4 (0.0-7.0) % Baso % (Auto) 0.3 (0.0-1.5) % Neut # (Auto) 4.3 (1.4-5.7) K/uL Lymph # (Auto) 2.4 (0.6-2.4) K/uL Lander # (Auto) 0.6 (0.0-0.8) K/uL Eos # (Auto) 0.2 (0.0-0.7) K/uL Baso # (Auto) 0.0 (0.0-0.1) K/uL Sodium (136-148) mmol/L Potassium (3.5-5.1) mmol/L Chloride (98-107) mmol/L Carbon Dioxide (21.0-32.0) mmol/L BUN (7.0-18.0) mg/dL Creatinine (0.8-1.3) mg/dL Est Cr Clr Drug Dosing mL/min Estimated GFR (MDRD) ml/min Glucose (74-106) mg/dL POC Glucose 291 H 279 H (60-110) mg/dL Calcium (8.5-10.1) mg/dL Total Bilirubin (0.2-1.0) mg/dL AST (15-37) IU/L ALT (14-63) IU/L Alkaline Phosphatase (46-116) U/L Total Protein (6.4-8.2) g/dL Albumin (3.4-5.0) g/dL Globulin (2.6-4.0) g/dL Albumin/Globulin Ratio (0.9-1.6) 05/26/18 05/26/18 Range/Units 05:05 06:26 WBC (4.0-11.0) K/uL RBC (4.50-5.90) M/uL Hgb (13.0-17.0) g/dL Hct (38.0-50.0) % MCV (80.0-98.0) fL MCH (27.0-32.0) pg MCHC (31.0-37.0) g/dL RDW Std Deviation (28.0-62.0) fl RDW Coeff of Bishop (11.0-15.0) % Plt Count (150-400) K/uL MPV (7.40-12.00) fL Neut % (Auto) (48.0-80.0) % Lymph % (Auto) (16.0-40.0) % Lander % (Auto) (0.0-15.0) % Eos % (Auto) (0.0-7.0) % Baso % (Auto) (0.0-1.5) % Neut # (Auto) (1.4-5.7) K/uL Lymph # (Auto) (0.6-2.4) K/uL Lander # (Auto) (0.0-0.8) K/uL Eos # (Auto) (0.0-0.7) K/uL Baso # (Auto) (0.0-0.1) K/uL Sodium 136 (136-148) mmol/L Potassium 4.3 (3.5-5.1) mmol/L Chloride 103 (98-107) mmol/L Carbon Dioxide 26.4 (21.0-32.0) mmol/L BUN 18 (7.0-18.0) mg/dL Creatinine 1.1 (0.8-1.3) mg/dL Est Cr Clr Drug Dosing 98.16 mL/min Estimated GFR (MDRD) > 60.0 ml/min Glucose 232 H (74-106) mg/dL POC Glucose 233 H (60-110) mg/dL Calcium 8.6 (8.5-10.1) mg/dL Total Bilirubin (0.2-1.0) mg/dL AST (15-37) IU/L ALT (14-63) IU/L Alkaline Phosphatase (46-116) U/L Total Protein (6.4-8.2) g/dL Albumin (3.4-5.0) g/dL Globulin (2.6-4.0) g/dL Albumin/Globulin Ratio (0.9-1.6) Med Orders - Current: Current Medications Enoxaparin Sodium (Lovenox) 40 mg SUBCUT Q24H [facility] Last Admin: 05/25/18 15:09 Dose: 40 mg Fluoxetine HCl (Prozac) 40 mg PO DAILY [facility] Last Admin: 05/26/18 08:43 Dose: 40 mg Vancomycin HCl 1 gm/Vancomycin HCl 500 mg/ Sodium Chloride 500 mls @ 250 mls/ hr IV Q8H [facility] Last Admin: 05/26/18 05:29 Dose: 250 mls/hr Insulin Aspart (Novolog) 0 unit SUBCUT TIDAC [facility]; Protocol Last Admin: 05/26/18 07:47 Dose: 2 units Insulin Aspart (Novolog) 5 unit SUBCUT DAILY@0700 [facility] Last Admin: 05/26/18 07:46 Dose: 5 units Insulin Aspart (Novolog) 8 unit SUBCUT DAILY@1130 [facility] Insulin Aspart (Novolog) 12 unit SUBCUT DAILY@1700 [facility] Last Admin: 05/25/18 18:21 Dose: 12 units Insulin Glargine (Lantus Solostar) 22 units SUBCUT BEDTIME [facility] Lisinopril (Prinivil) 20 mg PO DAILY [facility] Last Admin: 05/26/18 08:43 Dose: 20 mg Morphine Sulfate (Morphine) 2 mg IVPUSH Q2H PRN PRN Reason: Pain (severe 7-10) Stop: 05/26/18 13:34 Ondansetron HCl (Zofran) 4 mg IVPUSH Q4H PRN PRN Reason: Nausea Oxycodone HCl (Oxycodone) 5 - 10 mg PO Q4H PRN PRN Reason: Pain (moderate 4-6) Simvastatin (Zocor) 20 mg PO BEDTIME [facility] Last Admin: 05/25/18 20:18 Dose: 20 mg Sodium Chloride (Saline Flush) 10 ml FLUSH ASDIRECTED PRN PRN Reason: Keep Vein Open Last Admin: 05/25/18 11:29 Dose: 10 ml Sodium Chloride (Saline Flush) 2.5 ml FLUSH ASDIRECTED PRN PRN Reason: Keep Vein Open Last Admin: 05/25/18 11:29 Dose: 2.5 ml Trazodone HCl (Trazodone) 50 mg PO BEDTIME PRN PRN Reason: Sleep Vancomycin HCl (Pharmacy To Dose - Vancomycin) 1 dose .XX ASDIRECTED [facility] Discontinued Medications Vancomycin HCl 1 gm/ Sodium (Chloride) 250 mls @ 250 mls/hr IV ONETIME ONE Stop: 05/25/18 13:00 Last Admin: 05/25/18 12:16 Dose: 250 mls/hr Insulin Glargine (Lantus Solostar) 20 units SUBCUT BEDTIME [facility] Last Admin: 05/25/18 20:21 Dose: 20 intunit Non-Formulary Medication (Insulin Degludec [Tresiba]) 20 unit SQ BEDTIME [facility] - Exam General: Alert, Oriented, Cooperative Lungs: Clear to Auscultation, Normal Respiratory Effort Cardiovascular: Regular Rate, Regular Rhythm GI/Abdominal Exam: Normal Bowel Sounds, Soft Extremities: Normal Inspection, Normal Range of Motion, Non-Tender, No Pedal Edema Wound/Incisions: Drainage (serous drainge to R foot wound, erythema improving. ) , Erythema Improving Psy/Mental Status: Alert, Normal Affect, Normal Mood - Problem List & Annotations (1) Cellulitis SNOMED Code(s): 960877539 Code(s): L03.90 - CELLULITIS, UNSPECIFIED Status: Acute Current Visit: Yes Qualifiers: Site of cellulitis: extremity Site of cellulitis of extremity: lower extremity Laterality: right Qualified Code(s): L03.115 - Cellulitis of right lower limb (2) DM foot ulcer SNOMED Code(s): 326653160 Code(s): E11.621 - TYPE 2 DIABETES MELLITUS WITH FOOT ULCER; L97.509 - NON- PRESSURE CHRONIC ULCER OTH PRT UNSP FOOT W UNSP SEVERITY Status: Acute Current Visit: Yes Qualifiers: Diabetic foot ulcer location: midfoot Diabetes mellitus type: type 1 Laterality: right (3) DM type 2 (diabetes mellitus, type 2) SNOMED Code(s): 44026292 Code(s): E11.9 - TYPE 2 DIABETES MELLITUS WITHOUT COMPLICATIONS Status: Chronic Current Visit: Yes Qualifiers: Diabetes mellitus care home insulin use: with care home use Diabetes mellitus complication status: with skin complications Diabetes mellitus complication detail: with foot ulcer Qualified Code(s): E11.621 - Type 2 diabetes mellitus with foot ulcer; L97.509 - Non-pressure chronic ulcer of other part of unspecified foot with unspecified severity; Z79.4 - detention ( current) use of insulin (4) HTN (hypertension) SNOMED Code(s): 33249563 Code(s): I10 - ESSENTIAL (PRIMARY) HYPERTENSION Status: Chronic Current Visit: Yes Qualifiers: Hypertension type: essential hypertension Qualified Code(s): I10 - Essential (primary) hypertension (5) Medical non-compliance SNOMED Code(s): 690255460 Code(s): Z91.19 - PATIENT'S NONCOMPLIANCE W OTH MEDICAL TREATMENT AND REGIMEN Status: Acute Current Visit: No - Problem List Review Problem List Initiated/Reviewed/Updated: Yes - My Orders Last 24 Hours: My Active Orders 05/25/18 13:10 Foot w Cont Rt [MR] Routine 05/25/18 13:30 Blood Glucose Check, Bedside [RC] TIDMEALS May Shower [RC] ASDIRECTED Up ad Nadja [RC] ASDIRECTED Consult to Diabetic Nurse Specialist [CONS] Routine Enoxaparin [Lovenox] 40 mg SUBCUT Q24H Morphine 2 mg IVPUSH Q2H PRN Ondansetron [Zofran] 4 mg IVPUSH Q4H PRN oxyCODONE 5 - 10 mg PO Q4H PRN Resuscitation Status Routine 05/25/18 13:31 Intake and Output [RC] QSHIFT Oxygen Therapy [RC] PRN VTE/DVT Education [RC] PER UNIT ROUTINE Vital Signs [RC] Q4H 05/25/18 13:40 Obtain Home Medication List [OM.PC] Routine 05/25/18 13:45 Pharmacy to Dose - Vancomycin 1 dose .XX ASDIRECTED 05/25/18 14:30 Vancomycin 1 gm Vancomycin 500 mg Sodium Chloride 0.9% [Normal Saline] 500 ml IV Q8H 05/25/18 16:00 traZODone 50 mg PO BEDTIME PRN 05/25/18 16:30 CULTURE WOUND [RM] Routine 05/25/18 17:00 Insulin Aspart [NovoLOG] 12 unit SUBCUT DAILY@1700 Insulin Aspart [NovoLOG] See Protocol SUBCUT TIDAC 05/25/18 21:00 Simvastatin [Zocor] 20 mg PO BEDTIME 05/25/18 Lunch [employer] Diet [DIET] 05/26/18 07:00 Insulin Aspart [NovoLOG] 5 unit SUBCUT DAILY@0700 05/26/18 09:00 FLUoxetine [PROzac] 40 mg PO DAILY Lisinopril [Prinivil] 20 mg PO DAILY 05/26/18 11:30 Insulin Aspart [NovoLOG] 8 unit SUBCUT DAILY@1130 05/26/18 13:30 VANCOMYCIN TROUGH [CHEM] Routine 05/26/18 21:00 Insulin Glarg,Human.Rec.Analog [LantUS Solostar] 22 units SUBCUT BEDTIME 05/27/18 05:11 BASIC METABOLIC PANEL,BMP [CHEM] AM CBC WITH AUTO DIFF [HEME] AM 05/28/18 05:11 BASIC METABOLIC PANEL,BMP [CHEM] AM CBC WITH AUTO DIFF [HEME] AM - Plan Plan:: This 48 year old male admitted with DM foot ulcer with cellulitis 1. DM foot ulcer, R foot with cellulitis: Continue Vancomycin. MRI pending. I did explain to him no podiatry is available for inpatient management, if he needs further management such as debridement or surgical intervention he will need to be transferred. Wound culture of drainage. BC pending. 2. DM Type 2: A1c 10.4. Will increase Lantus to 22 units with bedtime. Novolog SSI with 5 units at breakfast, 8 at lunch and 12 units at supper. Discussed this with DM educator. 3. HTN: stbale. Continue Lisinopril. Will get restarted because BP is elevated on arrival. VTE prophylaxis: Lovenox Dispo: 1-2 days pending improvement. Need to await cultures. <Tevin Das - Last Filed: 05/26/18 12:14> - General Info Admission Dx/Problem (Free Text): I have seen and examined the patient independently of Sinai Vital CNP. I have discussed the case with her. I have reviewed and agreed with the plan of treatment as outlined for this patient by her. Please see orders. GI series completed. - Patient Data Vitals - Most Recent: Last Vital Signs Temp 36.2 C 05/26/18 11:34 Pulse 72 05/26/18 11:34 Resp 22 H 05/26/18 11:34 BP 135/82 05/26/18 11:34 Pulse Ox 95 05/26/18 11:34 I&O - Last 24 Hours: Intake & Output 05/25/18 05/26/18 05/26/18 22:59 06:59 14:59 Intake Total 980 1371 Output Total 0 Balance 980 1371 Lab Results Last 24 Hours: Laboratory Results - last 24 hr 05/25/18 05/25/18 05/25/18 Range/Units 11:07 11:24 17:00 WBC (4.0-11.0) K/uL RBC (4.50-5.90) M/uL Hgb (13.0-17.0) g/dL Hct (38.0-50.0) % MCV (80.0-98.0) fL MCH (27.0-32.0) pg MCHC (31.0-37.0) g/dL RDW Std Deviation (28.0-62.0) fl RDW Coeff of Bishop (11.0-15.0) % Plt Count (150-400) K/uL MPV (7.40-12.00) fL Neut % (Auto) (48.0-80.0) % Lymph % (Auto) (16.0-40.0) % Lander % (Auto) (0.0-15.0) % Eos % (Auto) (0.0-7.0) % Baso % (Auto) (0.0-1.5) % Neut # (Auto) (1.4-5.7) K/uL Lymph # (Auto) (0.6-2.4) K/uL Lander # (Auto) (0.0-0.8) K/uL Eos # (Auto) (0.0-0.7) K/uL Baso # (Auto) (0.0-0.1) K/uL Sodium 138 (136-148) mmol/L Potassium 3.9 (3.5-5.1) mmol/L Chloride 102 (98-107) mmol/L Carbon Dioxide 27.4 (21.0-32.0) mmol/L BUN 21 H (7.0-18.0) mg/dL Creatinine 1.2 (0.8-1.3) mg/dL Est Cr Clr Drug Dosing 89.98 mL/min Estimated GFR (MDRD) > 60.0 ml/min Glucose 138 H (74-106) mg/dL POC Glucose 135 H 291 H (60-110) mg/dL Calcium 9.5 (8.5-10.1) mg/dL Total Bilirubin 0.3 (0.2-1.0) mg/dL AST 13 L (15-37) IU/L ALT 28 (14-63) IU/L Alkaline Phosphatase 89 (46-116) U/L Total Protein 7.9 (6.4-8.2) g/dL Albumin 3.1 L (3.4-5.0) g/dL Globulin 4.8 H (2.6-4.0) g/dL Albumin/Globulin Ratio 0.7 L (0.9-1.6) 05/25/18 05/26/18 05/26/18 Range/Units 21:14 05:05 05:05 WBC 7.49 (4.0-11.0) K/uL RBC 4.67 (4.50-5.90) M/uL Hgb 14.1 (13.0-17.0) g/dL Hct 40.5 (38.0-50.0) % MCV 86.7 (80.0-98.0) fL MCH 30.2 (27.0-32.0) pg MCHC 34.8 (31.0-37.0) g/dL RDW Std Deviation 37.9 (28.0-62.0) fl RDW Coeff of Bishop 12 (11.0-15.0) % Plt Count 304 (150-400) K/uL MPV 10.40 (7.40-12.00) fL Neut % (Auto) 57.7 (48.0-80.0) % Lymph % (Auto) 32.0 (16.0-40.0) % Lander % (Auto) 7.6 (0.0-15.0) % Eos % (Auto) 2.4 (0.0-7.0) % Baso % (Auto) 0.3 (0.0-1.5) % Neut # (Auto) 4.3 (1.4-5.7) K/uL Lymph # (Auto) 2.4 (0.6-2.4) K/uL Lander # (Auto) 0.6 (0.0-0.8) K/uL Eos # (Auto) 0.2 (0.0-0.7) K/uL Baso # (Auto) 0.0 (0.0-0.1) K/uL Sodium 136 (136-148) mmol/L Potassium 4.3 (3.5-5.1) mmol/L Chloride 103 (98-107) mmol/L Carbon Dioxide 26.4 (21.0-32.0) mmol/L BUN 18 (7.0-18.0) mg/dL Creatinine 1.1 (0.8-1.3) mg/dL Est Cr Clr Drug Dosing 98.16 mL/min Estimated GFR (MDRD) > 60.0 ml/min Glucose 232 H (74-106) mg/dL POC Glucose 279 H (60-110) mg/dL Calcium 8.6 (8.5-10.1) mg/dL Total Bilirubin (0.2-1.0) mg/dL AST (15-37) IU/L ALT (14-63) IU/L Alkaline Phosphatase (46-116) U/L Total Protein (6.4-8.2) g/dL Albumin (3.4-5.0) g/dL Globulin (2.6-4.0) g/dL Albumin/Globulin Ratio (0.9-1.6) 05/26/18 05/26/18 Range/Units 06:26 11:46 WBC (4.0-11.0) K/uL RBC (4.50-5.90) M/uL Hgb (13.0-17.0) g/dL Hct (38.0-50.0) % MCV (80.0-98.0) fL MCH (27.0-32.0) pg MCHC (31.0-37.0) g/dL RDW Std Deviation (28.0-62.0) fl RDW Coeff of Bishop (11.0-15.0) % Plt Count (150-400) K/uL MPV (7.40-12.00) fL Neut % (Auto) (48.0-80.0) % Lymph % (Auto) (16.0-40.0) % Lander % (Auto) (0.0-15.0) % Eos % (Auto) (0.0-7.0) % Baso % (Auto) (0.0-1.5) % Neut # (Auto) (1.4-5.7) K/uL Lymph # (Auto) (0.6-2.4) K/uL Lander # (Auto) (0.0-0.8) K/uL Eos # (Auto) (0.0-0.7) K/uL Baso # (Auto) (0.0-0.1) K/uL Sodium (136-148) mmol/L Potassium (3.5-5.1) mmol/L Chloride (98-107) mmol/L Carbon Dioxide (21.0-32.0) mmol/L BUN (7.0-18.0) mg/dL Creatinine (0.8-1.3) mg/dL Est Cr Clr Drug Dosing mL/min Estimated GFR (MDRD) ml/min Glucose (74-106) mg/dL POC Glucose 233 H 268 H (60-110) mg/dL Calcium (8.5-10.1) mg/dL Total Bilirubin (0.2-1.0) mg/dL AST (15-37) IU/L ALT (14-63) IU/L Alkaline Phosphatase (46-116) U/L Total Protein (6.4-8.2) g/dL Albumin (3.4-5.0) g/dL Globulin (2.6-4.0) g/dL Albumin/Globulin Ratio (0.9-1.6) Jerardo Results Last 24 Hours: Microbiology 05/25/18 16:30 Wound Culture - Preliminary Foot, Right 05/25/18 11:35 Aerobic Blood Culture - Preliminary Blood - Venous - Lab Draw NO GROWTH AFTER 1 DAY Anaerobic Blood Culture - Preliminary NO GROWTH AFTER 1 DAY 05/25/18 11:24 Aerobic Blood Culture - Preliminary Blood - Venous NO GROWTH AFTER 1 DAY Anaerobic Blood Culture - Preliminary NO GROWTH AFTER 1 DAY Med Orders - Current: Current Medications Enoxaparin Sodium (Lovenox) 40 mg SUBCUT Q24H [facility] Last Admin: 05/25/18 15:09 Dose: 40 mg Fluoxetine HCl (Prozac) 40 mg PO DAILY [facility] Last Admin: 05/26/18 08:43 Dose: 40 mg Vancomycin HCl 1 gm/Vancomycin HCl 500 mg/ Sodium Chloride 500 mls @ 250 mls/ hr IV Q8H [facility] Last Admin: 05/26/18 05:29 Dose: 250 mls/hr Insulin Aspart (Novolog) 0 unit SUBCUT TIDAC [facility]; Protocol Last Admin: 05/26/18 11:50 Dose: 3 units Insulin Aspart (Novolog) 5 unit SUBCUT DAILY@0700 [facility] Last Admin: 05/26/18 07:46 Dose: 5 units Insulin Aspart (Novolog) 8 unit SUBCUT DAILY@1130 [facility] Last Admin: 05/26/18 11:47 Dose: 8 units Insulin Aspart (Novolog) 12 unit SUBCUT DAILY@1700 [facility] Last Admin: 05/25/18 18:21 Dose: 12 units Insulin Glargine (Lantus Solostar) 22 units SUBCUT BEDTIME [facility] Lisinopril (Prinivil) 20 mg PO DAILY [facility] Last Admin: 05/26/18 08:43 Dose: 20 mg Morphine Sulfate (Morphine) 2 mg IVPUSH Q2H PRN PRN Reason: Pain (severe 7-10) Stop: 05/26/18 13:34 Ondansetron HCl (Zofran) 4 mg IVPUSH Q4H PRN PRN Reason: Nausea Oxycodone HCl (Oxycodone) 5 - 10 mg PO Q4H PRN PRN Reason: Pain (moderate 4-6) Simvastatin (Zocor) 20 mg PO BEDTIME [facility] Last Admin: 05/25/18 20:18 Dose: 20 mg Sodium Chloride (Saline Flush) 10 ml FLUSH ASDIRECTED PRN PRN Reason: Keep Vein Open Last Admin: 05/25/18 11:29 Dose: 10 ml Sodium Chloride (Saline Flush) 2.5 ml FLUSH ASDIRECTED PRN PRN Reason: Keep Vein Open Last Admin: 05/25/18 11:29 Dose: 2.5 ml Trazodone HCl (Trazodone) 50 mg PO BEDTIME PRN PRN Reason: Sleep Vancomycin HCl (Pharmacy To Dose - Vancomycin) 1 dose .XX ASDIRECTED [facility] Discontinued Medications Gadobenate Dimeglumine (Multihance) 20 ml IVPUSH ONETIME STA Stop: 05/26/18 09:33 Last Admin: 05/26/18 09:33 Dose: 20 ml Vancomycin HCl 1 gm/ Sodium (Chloride) 250 mls @ 250 mls/hr IV ONETIME ONE Stop: 05/25/18 13:00 Last Admin: 05/25/18 12:16 Dose: 250 mls/hr Insulin Glargine (Lantus Solostar) 20 units SUBCUT BEDTIME [facility] Last Admin: 05/25/18 20:21 Dose: 20 intunit Non-Formulary Medication (Insulin Degludec [Tresiba]) 20 unit SQ BEDTIME [facility]
[2018-05-26] MEDS ORDERED: Gadobenate Dimeglumine 529 MG/ML 20 ML SDV IVPUSH STA (09:32)
[2018-05-26] MEDS: Enoxaparin 40 MG/0.4 ML Syringe SUBCUT SCH (14:03)
--- NOTE | 2018-05-26 14:33 | MR ---
EXAMINATION: MRI of the right foot with and without contrast HISTORY: Ulcer COMPARISON: Radiographs 05/25/2018 TECHNIQUE: Multiplanar and multisequence imaging obtained through the right foot before and following the administration of 20 mL of MultiHance. FINDINGS: There is extensive generalized edema and enhancement noted within the right foot most prominent within the plantar soft tissues. There is no organized fluid collection to suggest an ulcer. There is subcortical enhancement and edema adjacent to the fourth MTP joint with a small joint effusion. There is also a trace edema and enhancement within the middle cuneiform, likely degenerative in nature. Bone marrow signal is otherwise grossly unremarkable. The tibiotalar and subtalar joints are normal. Achilles tendon is preserved. The flexor and extensor tendons are grossly normal. There is a split tear of the peroneus brevis tendon at the retinaculum. IMPRESSION: 1. Extensive generalized soft tissue edema and enhancement most prominent along the plantar soft tissues, most likely representing cellulitis/fasciitis. 2. Enhancement and edema at the fourth MTP joint with a small joint effusion. Likely representing a septic joint and underlying osteomyelitis. 3. Split tear of the peroneus brevis tendon.
--- NOTE | 2018-05-26 15:33 | PCM.DCSUM1 ---
<Sinai Vital M - Last Filed: 05/26/18 15:35> Discharge Summary - Hospital Course Brief History: This 48 year old male with pmh of DM type 2, HTN, obesity presented to the ED from podiatry clinic with concerns of cellulitis and diabetic ulcer to R foot. He reports he has callouses to his feet that have been there for a long time. About 1 week ago this callous to bottom of foot started becoming sore and started draining. He denies fevers, chills, chest pain or shortness of breath. He reports increased pain to R foot with some redness and warmth. No calf tenderness. No tingling or numbness. He reports he has not been taking his medications, such as insulin or HTN meds as of recently. He did meet with DM educator a couple days ago to get started on insulin again. He denies history of ulcers. No AL or known CAD. In the ED no leukocytosis noted. Labwork otherwise WNL. BC obtained. Xray of foot pending. He was treated with Vancomycin and admitted secondary to DM foot ulcer with surround cellulitis. PCP, newly established with Gracy Howard. Diagnosis: Stroke: No - Discharge Data Discharge Date: 05/26/18 Discharge Disposition: DC/Tfer to Acute Hospital 02 Condition: Good - Discharge Diagnosis/Problem(s) (1) Cellulitis SNOMED Code(s): 303376582 ICD Code: L03.90 - CELLULITIS, UNSPECIFIED Status: Acute Current Visit: Yes Qualifiers: Site of cellulitis: extremity Site of cellulitis of extremity: lower extremity Laterality: right Qualified Code(s): L03.115 - Cellulitis of right lower limb (2) DM foot ulcer SNOMED Code(s): 980512370 ICD Code: E11.621 - TYPE 2 DIABETES MELLITUS WITH FOOT ULCER; L97.509 - NON- PRESSURE CHRONIC ULCER OTH PRT UNSP FOOT W UNSP SEVERITY Status: Acute Current Visit: Yes Qualifiers: Diabetic foot ulcer location: midfoot Diabetes mellitus type: type 1 Laterality: right (3) DM type 2 (diabetes mellitus, type 2) SNOMED Code(s): 19367507 ICD Code: E11.9 - TYPE 2 DIABETES MELLITUS WITHOUT COMPLICATIONS Status: Chronic Current Visit: Yes Qualifiers: Diabetes mellitus care home insulin use: with care home use Diabetes mellitus complication status: with skin complications Diabetes mellitus complication detail: with foot ulcer Qualified Code(s): E11.621 - Type 2 diabetes mellitus with foot ulcer; L97.509 - Non-pressure chronic ulcer of other part of unspecified foot with unspecified severity; Z79.4 - skilled nursing ( current) use of insulin (4) HTN (hypertension) SNOMED Code(s): 42979925 ICD Code: I10 - ESSENTIAL (PRIMARY) HYPERTENSION Status: Chronic Current Visit: Yes Qualifiers: Hypertension type: essential hypertension Qualified Code(s): I10 - Essential (primary) hypertension (5) Medical non-compliance SNOMED Code(s): 937173512 ICD Code: Z91.19 - PATIENT'S NONCOMPLIANCE W OTH MEDICAL TREATMENT AND REGIMEN Status: Acute Current Visit: No - Patient Summary/Data Consults: Consultations 05/25/18 13:30 Consult to Diabetic Nurse Specialist [CONS] Routine - Discharge Plan Home Medications: Home Meds FLUoxetine HCl [Fluoxetine HCl] 40 mg PO DAILY 05/25/18 [History] Insulin Aspart [NovoLOG] 5 unit SUBCUT WITHBREAKFAST 05/25/18 [History] Insulin Aspart [NovoLOG] 8 unit SUBCUT WITHLUNCH 05/25/18 [History] Insulin Aspart [NovoLOG] 12 unit SUBCUT WITHDINNER 05/25/18 [History] Lisinopril 20 mg PO DAILY 05/25/18 [History] Simvastatin 20 mg PO BEDTIME 05/25/18 [History] traZODone HCl [Trazodone HCl] 50 mg PO BEDTIME PRN 05/25/18 [History] Insulin Glarg,Human.Rec.Analog [Lantus Solostar] 22 units SUBCUT BEDTIME pen [Rx] Vancomycin 1 gm IV Q8H sdv 05/26/18 [Rx] Vancomycin 250 mg IV Q8H sdv 05/26/18 [Rx] Referrals: Gracy Adhikari NP [Primary Care Provider] - - Discharge Summary/Plan Comment DC Time >30 min.: No Discharge Summary/Plan Comment: Discharge Diagnoses: 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 Cultures were obtained yesterday which are growing coag positive staph and beta hemolytic strep. JEFF pending. He was started on Vancomycin. BC are negative x 1 day. MRI ordered and obtained this morning. This afternoon results of MRI returned revealing, extensive generalized sof tissue edema and enhancement most prominent along the plantar soft tissues, representing cellulitis. Enhancement and edema at the 4th MTP joint with small effusion, likely representing a septic joint and underlying osteomyelitis, split tear of the peroneus brevis tendon. I spoke with Dr Trevino, foot and ankle DR in [place], who recommended transfer for further evaluation and treatment. No direct admits are available at this time, but I was directed to ED for transfer. I spoke with Dr Becerril regarding transfer. He has accepted patient for transfer at this time. I spoke with Isamar and his sister Taniya regarding findings and recommendations. They understand and are agreeable for transfer. He will be transferred to [place], [place] today via EMS. - General Info Date of Service: 05/26/18 Admission Dx/Problem (Free Text: R foot cellulitis and DM foot ulcer Subjective Update: Doing well today, pain is better. No other complaints. Functional Status: Reports: Pain Controlled, Tolerating Diet, Ambulating, Urinating - Review of Systems General: Reports: No Symptoms. Denies: Fever, Weakness, Fatigue Pulmonary: Reports: No Symptoms. Denies: Shortness of Breath Cardiovascular: Reports: No Symptoms. Denies: Chest Pain Gastrointestinal: Reports: No Symptoms. Denies: Abdominal Pain, Nausea, Vomiting Musculoskeletal: Reports: Foot Pain (R foot pain, but much improved. ) Skin: Reports: No Symptoms Neurological: Reports: No Symptoms Psychiatric: Reports: No Symptoms - Patient Data Vitals - Most Recent: Last Vital Signs Temp 97.2 F 05/26/18 11:34 Pulse 72 05/26/18 11:34 Resp 22 H 05/26/18 11:34 BP 135/82 05/26/18 11:34 Pulse Ox 95 05/26/18 14:00 Weight - Most Recent: 130.635 kg I&O - Last 24 hours: Intake & Output 05/26/18 05/26/18 05/26/18 06:59 14:59 22:59 Intake Total 1371 Balance 1371 Lab Results - Last 24 hrs: Laboratory Results - last 24 hr 05/25/18 05/25/18 05/26/18 Range/Units 17:00 21:14 05:05 WBC 7.49 (4.0-11.0) K/uL RBC 4.67 (4.50-5.90) M/uL Hgb 14.1 (13.0-17.0) g/dL Hct 40.5 (38.0-50.0) % MCV 86.7 (80.0-98.0) fL MCH 30.2 (27.0-32.0) pg MCHC 34.8 (31.0-37.0) g/dL RDW Std Deviation 37.9 (28.0-62.0) fl RDW Coeff of Bishop 12 (11.0-15.0) % Plt Count 304 (150-400) K/uL MPV 10.40 (7.40-12.00) fL Neut % (Auto) 57.7 (48.0-80.0) % Lymph % (Auto) 32.0 (16.0-40.0) % Towner % (Auto) 7.6 (0.0-15.0) % Eos % (Auto) 2.4 (0.0-7.0) % Baso % (Auto) 0.3 (0.0-1.5) % Neut # (Auto) 4.3 (1.4-5.7) K/uL Lymph # (Auto) 2.4 (0.6-2.4) K/uL Towner # (Auto) 0.6 (0.0-0.8) K/uL Eos # (Auto) 0.2 (0.0-0.7) K/uL Baso # (Auto) 0.0 (0.0-0.1) K/uL Sodium (136-148) mmol/L Potassium (3.5-5.1) mmol/L Chloride (98-107) mmol/L Carbon Dioxide (21.0-32.0) mmol/L BUN (7.0-18.0) mg/dL Creatinine (0.8-1.3) mg/dL Est Cr Clr Drug Dosing mL/min Estimated GFR (MDRD) ml/min Glucose (74-106) mg/dL POC Glucose 291 H 279 H (60-110) mg/dL Calcium (8.5-10.1) mg/dL Vancomycin Trough (5.0-10.0) ug/mL 05/26/18 05/26/18 05/26/18 Range/Units 05:05 06:26 11:46 WBC (4.0-11.0) K/uL RBC (4.50-5.90) M/uL Hgb (13.0-17.0) g/dL Hct (38.0-50.0) % MCV (80.0-98.0) fL MCH (27.0-32.0) pg MCHC (31.0-37.0) g/dL RDW Std Deviation (28.0-62.0) fl RDW Coeff of Bishop (11.0-15.0) % Plt Count (150-400) K/uL MPV (7.40-12.00) fL Neut % (Auto) (48.0-80.0) % Lymph % (Auto) (16.0-40.0) % Towner % (Auto) (0.0-15.0) % Eos % (Auto) (0.0-7.0) % Baso % (Auto) (0.0-1.5) % Neut # (Auto) (1.4-5.7) K/uL Lymph # (Auto) (0.6-2.4) K/uL Towner # (Auto) (0.0-0.8) K/uL Eos # (Auto) (0.0-0.7) K/uL Baso # (Auto) (0.0-0.1) K/uL Sodium 136 (136-148) mmol/L Potassium 4.3 (3.5-5.1) mmol/L Chloride 103 (98-107) mmol/L Carbon Dioxide 26.4 (21.0-32.0) mmol/L BUN 18 (7.0-18.0) mg/dL Creatinine 1.1 (0.8-1.3) mg/dL Est Cr Clr Drug Dosing 98.16 mL/min Estimated GFR (MDRD) > 60.0 ml/min Glucose 232 H (74-106) mg/dL POC Glucose 233 H 268 H (60-110) mg/dL Calcium 8.6 (8.5-10.1) mg/dL Vancomycin Trough (5.0-10.0) ug/mL 05/26/18 Range/Units 14:23 WBC (4.0-11.0) K/uL RBC (4.50-5.90) M/uL Hgb (13.0-17.0) g/dL Hct (38.0-50.0) % MCV (80.0-98.0) fL MCH (27.0-32.0) pg MCHC (31.0-37.0) g/dL RDW Std Deviation (28.0-62.0) fl RDW Coeff of Bishop (11.0-15.0) % Plt Count (150-400) K/uL MPV (7.40-12.00) fL Neut % (Auto) (48.0-80.0) % Lymph % (Auto) (16.0-40.0) % Towner % (Auto) (0.0-15.0) % Eos % (Auto) (0.0-7.0) % Baso % (Auto) (0.0-1.5) % Neut # (Auto) (1.4-5.7) K/uL Lymph # (Auto) (0.6-2.4) K/uL Towner # (Auto) (0.0-0.8) K/uL Eos # (Auto) (0.0-0.7) K/uL Baso # (Auto) (0.0-0.1) K/uL Sodium (136-148) mmol/L Potassium (3.5-5.1) mmol/L Chloride (98-107) mmol/L Carbon Dioxide (21.0-32.0) mmol/L BUN (7.0-18.0) mg/dL Creatinine (0.8-1.3) mg/dL Est Cr Clr Drug Dosing mL/min Estimated GFR (MDRD) ml/min Glucose (74-106) mg/dL POC Glucose (60-110) mg/dL Calcium (8.5-10.1) mg/dL Vancomycin Trough 17.8 H (5.0-10.0) ug/mL JEFF Results - Last 24 hrs: Microbiology 05/25/18 16:30 Wound Culture - Preliminary Foot, Right 05/25/18 11:35 Aerobic Blood Culture - Preliminary Blood - Venous - Lab Draw NO GROWTH AFTER 1 DAY Anaerobic Blood Culture - Preliminary NO GROWTH AFTER 1 DAY 05/25/18 11:24 Aerobic Blood Culture - Preliminary Blood - Venous NO GROWTH AFTER 1 DAY Anaerobic Blood Culture - Preliminary NO GROWTH AFTER 1 DAY Med Orders - Current: Current Medications Enoxaparin Sodium (Lovenox) 40 mg SUBCUT Q24H [facility] Last Admin: 05/26/18 14:03 Dose: 40 mg Fluoxetine HCl (Prozac) 40 mg PO DAILY [facility] Last Admin: 05/26/18 08:43 Dose: 40 mg Vancomycin HCl 1 gm/Vancomycin HCl 250 mg/ Sodium Chloride 250 mls @ 166.667 mls/hr IV Q8H [facility] Insulin Aspart (Novolog) 0 unit SUBCUT TIDAC [facility]; Protocol Last Admin: 05/26/18 11:50 Dose: 3 units Insulin Aspart (Novolog) 5 unit SUBCUT DAILY@0700 [facility] Last Admin: 05/26/18 07:46 Dose: 5 units Insulin Aspart (Novolog) 8 unit SUBCUT DAILY@1130 [facility] Last Admin: 05/26/18 11:47 Dose: 8 units Insulin Aspart (Novolog) 12 unit SUBCUT DAILY@1700 [facility] Last Admin: 05/25/18 18:21 Dose: 12 units Insulin Glargine (Lantus Solostar) 22 units SUBCUT BEDTIME [facility] Lisinopril (Prinivil) 20 mg PO DAILY [facility] Last Admin: 05/26/18 08:43 Dose: 20 mg Ondansetron HCl (Zofran) 4 mg IVPUSH Q4H PRN PRN Reason: Nausea Oxycodone HCl (Oxycodone) 5 - 10 mg PO Q4H PRN PRN Reason: Pain (moderate 4-6) Simvastatin (Zocor) 20 mg PO BEDTIME [facility] Last Admin: 05/25/18 20:18 Dose: 20 mg Sodium Chloride (Saline Flush) 10 ml FLUSH ASDIRECTED PRN PRN Reason: Keep Vein Open Last Admin: 05/25/18 11:29 Dose: 10 ml Sodium Chloride (Saline Flush) 2.5 ml FLUSH ASDIRECTED PRN PRN Reason: Keep Vein Open Last Admin: 05/25/18 11:29 Dose: 2.5 ml Trazodone HCl (Trazodone) 50 mg PO BEDTIME PRN PRN Reason: Sleep Vancomycin HCl (Pharmacy To Dose - Vancomycin) 1 dose .XX ASDIRECTED [facility] Discontinued Medications Gadobenate Dimeglumine (Multihance) 20 ml IVPUSH ONETIME STA Stop: 05/26/18 09:33 Last Admin: 05/26/18 09:33 Dose: 20 ml Vancomycin HCl 1 gm/ Sodium (Chloride) 250 mls @ 250 mls/hr IV ONETIME ONE Stop: 05/25/18 13:00 Last Admin: 05/25/18 12:16 Dose: 250 mls/hr Vancomycin HCl 1 gm/Vancomycin HCl 500 mg/ Sodium Chloride 500 mls @ 250 mls/ hr IV Q8H [facility] Last Admin: 05/26/18 05:29 Dose: 250 mls/hr Insulin Glargine (Lantus Solostar) 20 units SUBCUT BEDTIME [facility] Last Admin: 05/25/18 20:21 Dose: 20 intunit Morphine Sulfate (Morphine) 2 mg IVPUSH Q2H PRN PRN Reason: Pain (severe 7-10) Stop: 05/26/18 13:34 Non-Formulary Medication (Insulin Degludec [Tresiba]) 20 unit SQ BEDTIME [facility] - Exam General: Reports: Alert, Oriented Lungs: Reports: Clear to Auscultation, Normal Respiratory Effort Cardiovascular: Reports: Regular Rate, Regular Rhythm GI/Abdominal Exam: Normal Bowel Sounds, Soft, Non-Tender, Other (obese abdomen) Back Exam: Reports: Normal Inspection, Full Range of Motion Extremities: Normal Inspection, Normal Range of Motion, Non-Tender Wound/Incisions: Reports: Drainage (serous drainage to DM foot ulcer, R plantar surface of foot. No fluctuance noted. Tenderness improved drastically. ), Erythema Improving Psy/Mental Status: Reports: Alert, Normal Affect, Normal Mood, Anxious ( regarding transfer, but calming down with sisters presence) <Tevin Das - Last Filed: 05/26/18 15:56> Discharge Summary - Hospital Course HPI Initial Comments: I have seen and examined the patient independently of Sinai Vital CNP. I have discussed the case with her. I have reviewed and agreed with the plan of treatment as outlined for this patient by her. Please see orders. - Patient Summary/Data Consults: Consultations 05/25/18 13:30 Consult to Diabetic Nurse Specialist [CONS] Routine - Patient Data Vitals - Most Recent: Last Vital Signs Temp 36.4 C 05/26/18 15:44 Pulse 81 05/26/18 15:44 Resp 16 05/26/18 15:44 BP 147/90 H 05/26/18 15:44 Pulse Ox 98 05/26/18 15:44 I&O - Last 24 hours: Intake & Output 05/26/18 05/26/18 05/26/18 06:59 14:59 22:59 Intake Total 1371 Balance 1371 Lab Results - Last 24 hrs: Laboratory Results - last 24 hr 05/25/18 05/25/18 05/26/18 Range/Units 17:00 21:14 05:05 WBC 7.49 (4.0-11.0) K/uL RBC 4.67 (4.50-5.90) M/uL Hgb 14.1 (13.0-17.0) g/dL Hct 40.5 (38.0-50.0) % MCV 86.7 (80.0-98.0) fL MCH 30.2 (27.0-32.0) pg MCHC 34.8 (31.0-37.0) g/dL RDW Std Deviation 37.9 (28.0-62.0) fl RDW Coeff of Bishop 12 (11.0-15.0) % Plt Count 304 (150-400) K/uL MPV 10.40 (7.40-12.00) fL Neut % (Auto) 57.7 (48.0-80.0) % Lymph % (Auto) 32.0 (16.0-40.0) % Towner % (Auto) 7.6 (0.0-15.0) % Eos % (Auto) 2.4 (0.0-7.0) % Baso % (Auto) 0.3 (0.0-1.5) % Neut # (Auto) 4.3 (1.4-5.7) K/uL Lymph # (Auto) 2.4 (0.6-2.4) K/uL Towner # (Auto) 0.6 (0.0-0.8) K/uL Eos # (Auto) 0.2 (0.0-0.7) K/uL Baso # (Auto) 0.0 (0.0-0.1) K/uL Sodium (136-148) mmol/L Potassium (3.5-5.1) mmol/L Chloride (98-107) mmol/L Carbon Dioxide (21.0-32.0) mmol/L BUN (7.0-18.0) mg/dL Creatinine (0.8-1.3) mg/dL Est Cr Clr Drug Dosing mL/min Estimated GFR (MDRD) ml/min Glucose (74-106) mg/dL POC Glucose 291 H 279 H (60-110) mg/dL Calcium (8.5-10.1) mg/dL Vancomycin Trough (5.0-10.0) ug/mL 05/26/18 05/26/18 05/26/18 Range/Units 05:05 06:26 11:46 WBC (4.0-11.0) K/uL RBC (4.50-5.90) M/uL Hgb (13.0-17.0) g/dL Hct (38.0-50.0) % MCV (80.0-98.0) fL MCH (27.0-32.0) pg MCHC (31.0-37.0) g/dL RDW Std Deviation (28.0-62.0) fl RDW Coeff of Bishop (11.0-15.0) % Plt Count (150-400) K/uL MPV (7.40-12.00) fL Neut % (Auto) (48.0-80.0) % Lymph % (Auto) (16.0-40.0) % Towner % (Auto) (0.0-15.0) % Eos % (Auto) (0.0-7.0) % Baso % (Auto) (0.0-1.5) % Neut # (Auto) (1.4-5.7) K/uL Lymph # (Auto) (0.6-2.4) K/uL Towner # (Auto) (0.0-0.8) K/uL Eos # (Auto) (0.0-0.7) K/uL Baso # (Auto) (0.0-0.1) K/uL Sodium 136 (136-148) mmol/L Potassium 4.3 (3.5-5.1) mmol/L Chloride 103 (98-107) mmol/L Carbon Dioxide 26.4 (21.0-32.0) mmol/L BUN 18 (7.0-18.0) mg/dL Creatinine 1.1 (0.8-1.3) mg/dL Est Cr Clr Drug Dosing 98.16 mL/min Estimated GFR (MDRD) > 60.0 ml/min Glucose 232 H (74-106) mg/dL POC Glucose 233 H 268 H (60-110) mg/dL Calcium 8.6 (8.5-10.1) mg/dL Vancomycin Trough (5.0-10.0) ug/mL 05/26/18 Range/Units 14:23 WBC (4.0-11.0) K/uL RBC (4.50-5.90) M/uL Hgb (13.0-17.0) g/dL Hct (38.0-50.0) % MCV (80.0-98.0) fL MCH (27.0-32.0) pg MCHC (31.0-37.0) g/dL RDW Std Deviation (28.0-62.0) fl RDW Coeff of Bishop (11.0-15.0) % Plt Count (150-400) K/uL MPV (7.40-12.00) fL Neut % (Auto) (48.0-80.0) % Lymph % (Auto) (16.0-40.0) % Towner % (Auto) (0.0-15.0) % Eos % (Auto) (0.0-7.0) % Baso % (Auto) (0.0-1.5) % Neut # (Auto) (1.4-5.7) K/uL Lymph # (Auto) (0.6-2.4) K/uL Towner # (Auto) (0.0-0.8) K/uL Eos # (Auto) (0.0-0.7) K/uL Baso # (Auto) (0.0-0.1) K/uL Sodium (136-148) mmol/L Potassium (3.5-5.1) mmol/L Chloride (98-107) mmol/L Carbon Dioxide (21.0-32.0) mmol/L BUN (7.0-18.0) mg/dL Creatinine (0.8-1.3) mg/dL Est Cr Clr Drug Dosing mL/min Estimated GFR (MDRD) ml/min Glucose (74-106) mg/dL POC Glucose (60-110) mg/dL Calcium (8.5-10.1) mg/dL Vancomycin Trough 17.8 H (5.0-10.0) ug/mL JEFF Results - Last 24 hrs: Microbiology 05/25/18 16:30 Wound Culture - Preliminary Foot, Right 05/25/18 11:35 Aerobic Blood Culture - Preliminary Blood - Venous - Lab Draw NO GROWTH AFTER 1 DAY Anaerobic Blood Culture - Preliminary NO GROWTH AFTER 1 DAY 05/25/18 11:24 Aerobic Blood Culture - Preliminary Blood - Venous NO GROWTH AFTER 1 DAY Anaerobic Blood Culture - Preliminary NO GROWTH AFTER 1 DAY Med Orders - Current: Current Medications Enoxaparin Sodium (Lovenox) 40 mg SUBCUT Q24H [facility] Last Admin: 05/26/18 14:03 Dose: 40 mg Fluoxetine HCl (Prozac) 40 mg PO DAILY [facility] Last Admin: 05/26/18 08:43 Dose: 40 mg Vancomycin HCl 1 gm/Vancomycin HCl 250 mg/ Sodium Chloride 250 mls @ 166.667 mls/hr IV Q8H [facility] Insulin Aspart (Novolog) 0 unit SUBCUT TIDAC [facility]; Protocol Last Admin: 05/26/18 11:50 Dose: 3 units Insulin Aspart (Novolog) 5 unit SUBCUT DAILY@0700 [facility] Last Admin: 05/26/18 07:46 Dose: 5 units Insulin Aspart (Novolog) 8 unit SUBCUT DAILY@1130 [facility] Last Admin: 05/26/18 11:47 Dose: 8 units Insulin Aspart (Novolog) 12 unit SUBCUT DAILY@1700 [facility] Last Admin: 05/25/18 18:21 Dose: 12 units Insulin Glargine (Lantus Solostar) 22 units SUBCUT BEDTIME [facility] Lisinopril (Prinivil) 20 mg PO DAILY [facility] Last Admin: 05/26/18 08:43 Dose: 20 mg Ondansetron HCl (Zofran) 4 mg IVPUSH Q4H PRN PRN Reason: Nausea Oxycodone HCl (Oxycodone) 5 - 10 mg PO Q4H PRN PRN Reason: Pain (moderate 4-6) Simvastatin (Zocor) 20 mg PO BEDTIME [facility] Last Admin: 05/25/18 20:18 Dose: 20 mg Sodium Chloride (Saline Flush) 10 ml FLUSH ASDIRECTED PRN PRN Reason: Keep Vein Open Last Admin: 05/25/18 11:29 Dose: 10 ml Sodium Chloride (Saline Flush) 2.5 ml FLUSH ASDIRECTED PRN PRN Reason: Keep Vein Open Last Admin: 05/25/18 11:29 Dose: 2.5 ml Trazodone HCl (Trazodone) 50 mg PO BEDTIME PRN PRN Reason: Sleep Vancomycin HCl (Pharmacy To Dose - Vancomycin) 1 dose .XX ASDIRECTED [facility] Discontinued Medications Gadobenate Dimeglumine (Multihance) 20 ml IVPUSH ONETIME STA Stop: 05/26/18 09:33 Last Admin: 05/26/18 09:33 Dose: 20 ml Vancomycin HCl 1 gm/ Sodium (Chloride) 250 mls @ 250 mls/hr IV ONETIME ONE Stop: 05/25/18 13:00 Last Admin: 05/25/18 12:16 Dose: 250 mls/hr Vancomycin HCl 1 gm/Vancomycin HCl 500 mg/ Sodium Chloride 500 mls @ 250 mls/ hr IV Q8H [facility] Last Admin: 05/26/18 05:29 Dose: 250 mls/hr Insulin Glargine (Lantus Solostar) 20 units SUBCUT BEDTIME [facility] Last Admin: 05/25/18 20:21 Dose: 20 intunit Morphine Sulfate (Morphine) 2 mg IVPUSH Q2H PRN PRN Reason: Pain (severe 7-10) Stop: 05/26/18 13:34 Non-Formulary Medication (Insulin Degludec [Tresiba]) 20 unit SQ BEDTIME [facility]
[2018-05-26] MEDS ORDERED: Vancomycin 1 GM, Vancomycin 250 MG in Sodium Chloride 0.9% 250 ML IV SCH (15:45)
[2018-05-26] MEDS ORDERED: Insulin Glargine,Human Rec. Analog 100 Units/ML 3 ML Pen SUBCUT SCH (21:00)
== END 2018-05-26 16:53 ==
LOC: MW.ED 10:49 → MW.MS 12:37
PROVIDERS: ADMIT Internal Medicine; ATTEND Internal Medicine
DX: L03.115 Cellulitis of right lower limb (principal); E10.621 Type 1 diabetes mellitus with foot ulcer; L97.419 Non-pressure chronic ulcer of right heel and midfoot with unspecified severity; E78.5 Hyperlipidemia, unspecified; M86.8X7 Other osteomyelitis, ankle and foot; I10 Essential (primary) hypertension; Z79.4 Long term (current) use of insulin; Z79.899 Other long term (current) drug therapy
CPT/HCPCS: 36415; 73630; 73720; 80048; 80053; 80202; 82962; 85025; 87040; 87070; 87077; 87186; 96365; 96366; 96372; 96376; 99284; A9270; A9577; G0378; J1650; J1815; J3370; J7040; J7050

== ENCOUNTER 2021-04-10 20:53 | Emergency (ER) | payer BC ==
[2021-04-10] MEDS ORDERED: Sodium Chloride 0.9% 1,000 ML IV ONE (21:11)
[2021-04-10] MEDS ORDERED: Ketorolac 30 MG/ML SDV IVPUSH ONE (21:16)
[2021-04-10 22:19] LABS: CORONAVIRUS COVID-19 NAA NEGATIVE (NEGATIVE); INFLUENZA A NAA NEGATIVE (NEGATIVE); INFLUENZA B NAA NEGATIVE (NEGATIVE)
[2021-04-10 22:24] LABS: CARBON DIOXIDE,CO2 22.6 mmol/L (21.0-32.0); POTASSIUM,K 4.3 mmol/L (3.5-5.1)
== END 2021-04-10 23:00 | disposition home or self-care (01) ==
LOC: MW.ED 20:53
DX: E10.9 Type 1 diabetes mellitus without complications (principal); R51.9 Headache, unspecified; I10 Essential (primary) hypertension; E66.9 Obesity, unspecified; Z20.822 Contact with and (suspected) exposure to COVID-19
CPT/HCPCS: 0240U; 36415; 80053; 85025; 96374; 99284; J1885; J7030; 99282

== ENCOUNTER 2021-04-16 08:35 | Emergency (ER) | payer BC ==
[2021-04-16] MEDS: Sodium Chloride 0.9% 1,000 ML IV ONE ×2 (09:04→10:22)
[2021-04-16] MEDS: Morphine 4 MG/ML VIAL IVPUSH ONE ×2 (09:06→12:05)
[2021-04-16] MEDS: Ondansetron 4 MG/2 ML SDV IVPUSH ONE (09:06)
[2021-04-16] MEDS: Piperacillin/Tazobactam 3.375 GM in Sodium Chloride 0.9% 50 ML IV ONE (09:18)
[2021-04-16 09:27] LABS: BLOOD UREA NITROGEN,BUN 33 mg/dL (7.0-18.0); CARBON DIOXIDE,CO2 21.5 mmol/L (21.0-32.0); CHLORIDE,CL 94 mmol/L (98-107); GLUCOSE RANDOM 270 mg/dL (74-106); LIPASE 31 U/L (73-393); POTASSIUM,K 3.9 mmol/L (3.5-5.1); SODIUM,NA 132 mmol/L (136-148)
[2021-04-16] MEDS ORDERED: 50% Dextrose in Water 50 ML Syringe IVPUSH PRN (09:56)
[2021-04-16] MEDS ORDERED: Glucagon,Human Recombinant 1 MG Vial IM PRN (09:56)
[2021-04-16 10:13] LABS: CORONAVIRUS COVID-19 NAA NEGATIVE (NEGATIVE); INFLUENZA A NAA NEGATIVE (NEGATIVE); INFLUENZA B NAA NEGATIVE (NEGATIVE)
[2021-04-16] MEDS: Insulin Regular, Human 100 Units/ML 10 ML Vial IVPUSH ONE (10:21)
[2021-04-16] MEDS: Iopamidol 755 MG/ML 500 ML Multipack Bottle IVPUSH STA (10:21)
== END 2021-04-16 15:50 ==
LOC: MW.ED 08:35
DX: N39.0 Urinary tract infection, site not specified (principal); N41.2 Abscess of prostate; I10 Essential (primary) hypertension; E11.9 Type 2 diabetes mellitus without complications; E66.9 Obesity, unspecified; Z91.09 Other allergy status, other than to drugs and biological substances; Z79.899 Other long term (current) drug therapy; Z20.822 Contact with and (suspected) exposure to COVID-19; Z68.38 Body mass index [BMI] 38.0-38.9, adult
CPT/HCPCS: 0240U; 36415; 71045; 74177; 80053; 81001; 82803; 82947; 83605; 83690; 83735; 84484; 85025; 86140; 87040; 93005; 96365; 96375; 96376; 99285; J2270; J2405; J2543; J7030; Q9967; 87077; 87186; 93010; J1815-GY

== ENCOUNTER 2021-05-22 12:36 | Emergency (ER) | payer BC ==
[2021-05-22] MEDS ORDERED: Sodium Chloride 0.9% 10 ML Syringe FLUSH PRN (12:41)
[2021-05-22] MEDS ORDERED: Sodium Chloride 0.9% 2.5 ML Syringe FLUSH PRN (12:41)
[2021-05-22] MEDS ORDERED: Sodium Chloride 0.9% 1,000 ML IV ONE ×3 (12:58→13:47)
[2021-05-22] MEDS ORDERED: Ondansetron 4 MG/2 ML SDV IVPUSH ONE (13:03)
[2021-05-22] MEDS ORDERED: HYDROmorphone 1 MG/ML Syringe IVPUSH ONE ×2 (13:03→15:52)
[2021-05-22 13:32] LABS: CARBON DIOXIDE,CO2 19.6 mmol/L (21.0-32.0); POTASSIUM,K 4.6 mmol/L (3.5-5.1)
[2021-05-22 14:02] LABS: CORONAVIRUS COVID-19 NAA NEGATIVE (NEGATIVE); INFLUENZA A NAA NEGATIVE (NEGATIVE); INFLUENZA B NAA NEGATIVE (NEGATIVE)
[2021-05-22] MEDS ORDERED: Iopamidol 755 MG/ML 500 ML Multipack Bottle IVPUSH STA (18:49)
== END 2021-05-22 17:33 | disposition home or self-care (01) ==
LOC: MW.ED 12:36
DX: R10.31 Right lower quadrant pain (principal); E11.9 Type 2 diabetes mellitus without complications; E66.9 Obesity, unspecified; Z68.36 Body mass index [BMI] 36.0-36.9, adult; Z91.09 Other allergy status, other than to drugs and biological substances; Z79.899 Other long term (current) drug therapy; Z79.01 Long term (current) use of anticoagulants; Z20.822 Contact with and (suspected) exposure to COVID-19
CPT/HCPCS: 0240U; 36415; 74178; 80053; 81001; 82947; 83605; 83690; 85025; 87040; 93005; 96374; 96375; 96376; 99284; J1170; J2405; J3490; J7030; Q9967

== ENCOUNTER 2022-03-10 09:07 | Emergency (ER) | payer BC ==
[2022-03-10 10:26] LABS: CARBON DIOXIDE,CO2 27.9 mmol/L (21.0-32.0); POTASSIUM,K 4.6 mmol/L (3.5-5.1)
== END 2022-03-10 10:53 | disposition home or self-care (01) ==
LOC: MW.ED 09:07
DX: L84 Corns and callosities (principal); I10 Essential (primary) hypertension; E11.9 Type 2 diabetes mellitus without complications; E66.9 Obesity, unspecified; Z68.36 Body mass index [BMI] 36.0-36.9, adult; Z91.048 Other nonmedicinal substance allergy status; Z79.4 Long term (current) use of insulin; Z79.899 Other long term (current) drug therapy
CPT/HCPCS: 36415; 73620-26-RT; 73620-RT; 80053; 85025; 85652; 86140; 99283